=== PATIENT | female | born 1945 | race Caucasian/White ===

== ENCOUNTER → 2021-09-08 09:20 | Outpatient (CLI) | payer BC, SELFPAY ==
[2021-09-08 10:08] LABS: Add Manual Diff / Slide Review NO; Basophils Absolute Auto 0 /uL (0-100); Basophils Percent Auto 0.4 % (0-2); Eosinophils Absolute Auto 200 /uL (0-450); Eosinophils Percent Auto 3.3 % (2-4); Hematocrit 48.6 % (36-46); Hemoglobin 16.4 g/dL (12.0-16.0); Lymphocytes Absolute Auto 1900 /uL (1100-4500); Lymphocytes Percent Auto 30.9 % (25-40); Mean Corpuscular HGB Conc 33.7 % (30-36); Mean Corpuscular Volume 91.9 fL (80-100); Monocytes Absolute Auto 600 /uL (0-900); Monocytes Percent Auto 10.5 % (3-14); Neutrophils Absolute Auto 3400 /uL (1500-7000); Neutrophils Percent Auto 54.9 % (50-75); Platelet Count 234 X10^3/uL (150-400); Red Blood Cell Count 5.29 X10^6/uL (4.0-5.2); Red Cell Distribution Width 13.4 % (11.6-14.8); White Blood Cell Count 6.1 X10^3/uL (4.5-11.0)
[2021-09-08 10:29] LABS: Alanine Aminotransferase 36 IU/L (<35); Albumin 4.6 g/dL (3.5-5.0); Albumin Globulin Ratio 1.4 (1.0-2.8); Alkaline Phosphatase 45 U/L (38-126); Aspartate Aminotransferase 41 IU/L (14-36); Bilirubin Total 0.7 mg/dL (0.2-1.3); Blood Urea Nitrogen 15 mg/dL (7-17); Carbon Dioxide 35 mmol/L (22-32); Chloride 104 mmol/L (98-107); Cholesterol 211 mg/dL (140-199); Estimated Glomerular Filt Rate > 60.0 mL/min (>60); Globulin 3.3 g/dL (1.7-4.1); Glucose 100 mg/dL (80-110); HDL Cholesterol 52 mg/dL (40-60); HEMOLYSIS < 15 (0-50); LDL Cholesterol Calculated 133 mg/dL (<100); Potassium 4.6 mmol/L (3.4-5.1); Sodium 141 mmol/L (137-145); Total Protein 7.9 g/dL (6.3-8.2); Triglycerides 129 mg/dL (35-150)
[2021-09-08 10:58] LABS: TSH w/ Reflex to FT4 1.95 uIU/mL (0.47-4.68)
== END ==
PROVIDERS: PCP Family Medicine; Referring Provider Family Medicine; Visit Provider Family Medicine
DX: Z00.00 Encounter for general adult medical examination without abnormal findings (principal)
CPT/HCPCS: 36415; 80053; 80061; 84443; 85025

== ENCOUNTER → 2023-11-22 | Outpatient (CLI) | payer BC, SELFPAY ==
--- NOTE | 2023-11-22 14:52 | DI.RAD.S_ITS ---
Bone Density Report Name: COTY JACKSON Age: 78 Sex: Female Ethnicity: White Date of : 1945 Indication: postmenopausal; screening for osteoporosis; Referring Provider: ARUNA CHINO Study: Bone densitometry was performed. Exam Date: November 22, 2023 Accession number: [id number] Bone Density: Region BMD T-score Z-score Classification AP Spine(L1-L4) 1.253 1.9 4.4 Normal Femoral Neck (Left) 0.816 -0.3 1.9 Normal Total Hip (Left) 1.002 0.5 2.4 Normal Femoral Neck (Right) 0.753 -0.9 1.3 Normal Total Hip (Right) 0.970 0.2 2.1 Normal Total Hip Mean 0.986 0.4 2.3 Normal World Health Organization criteria for BMD impression classify patients as: Normal (T-score at or above -1.0), Osteopenia (T-score between -1.0 and -2.5), or Osteoporosis (T-score at or below -2.5). 10-year Fracture Risk: FRAX not reported because: All T-scores for Spine Total, Hip Total, Femoral Neck at or above -1.0 Impression: The patient has normal bone mass. Discussion: BONE DENSITY IS ABOVE THE MINIMUM DESIRABLE LEVEL AT ALL SKELETAL SITES TESTED. This patient's bone mineral density is above the minimum desirable level (T-score -1.0 or better) at all sites measured. The patient should follow a healthful lifestyle (good nutrition with adequate calcium and vitamin D, and appropriate weight-bearing exercise). Follow-Up: Consider repeating this study in 5 years or sooner if there is some new clinical indication. Reported by: ROBERTH LEIVA MD on 11/22/2023 3:18:00 PM.
== END ==
PROVIDERS: PCP Family Medicine; Referring Provider Family Medicine; Visit Provider Family Medicine
DX: Z78.0 Asymptomatic menopausal state (principal); Z13.820 Encounter for screening for osteoporosis
CPT/HCPCS: 77080

== ENCOUNTER → 2024-04-02 09:10 | Outpatient (CLI) | payer BC, SELFPAY ==
[2024-04-02 10:42] LABS: Hematocrit 43.9 % (36-46); Hemoglobin 14.8 g/dL (12.0-16.0); Mean Corpuscular HGB Conc 33.6 % (30-36); Mean Corpuscular Hemoglobin 30.2 PG (26-34); Mean Corpuscular Volume 89.9 fL (80-100); Platelet Count 250 X10^3/uL (150-400); Red Blood Cell Count 4.89 X10^6/uL (4.0-5.2); Red Cell Distribution Width 13.1 % (11.6-14.8); White Blood Cell Count 6.1 X10^3/uL (4.5-11.0)
[2024-04-02 10:52] LABS: Hemoglobin A1C% w Est Avg Glu 5.5 % (4.0-6.0)
[2024-04-02 10:55] LABS: Alanine Aminotransferase 22 IU/L (<35); Albumin 4.3 g/dL (3.5-5.0); Albumin Globulin Ratio 1.6 (1.0-2.8); Alkaline Phosphatase 61 U/L (38-126); Aspartate Aminotransferase 32 IU/L (14-36); Bilirubin Total 0.8 mg/dL (0.2-1.3); Blood Urea Nitrogen 21 mg/dL (7-17); Calcium 9.5 mg/dL (8.4-10.2); Carbon Dioxide 22 mmol/L (22-32); Chloride 106 mmol/L (98-107); Cholesterol 186 mg/dL (140-199); Estimated Glomerular Filt Rate > 60 mL/min (>60); Globulin 2.7 g/dL (1.7-4.1); Glucose 95 mg/dL (80-110); HDL Cholesterol 65 mg/dL (40-60); HEMOLYSIS < 15 (0-50); LDL Cholesterol Calculated 106 mg/dL (<100); Potassium 4.5 mmol/L (3.4-5.1); Sodium 137 mmol/L (137-145); Triglycerides 74 mg/dL (35-150); Uric Acid 7.6 mg/dL (2.5-6.2)
[2024-04-02 10:59] LABS: HEMOLYSIS < 15 (0-50); Iron 138 ug/dL (37-170)
[2024-04-02 11:10] LABS: Percent Iron Saturation 42 % (15-50); Total Iron Binding Capacity 326 ug/dL (265-497); Transferrin 241 mg/dL (206-381)
[2024-04-02 11:20] LABS: Vitamin D 25 Hydroxy (D3) 59.2 ng/mL (30.0-100.0)
[2024-04-02 11:22] LABS: Free T3, Triiodothyronine Free 3.36 pg/mL (2.77-5.27); Free T4, Direct Thyroxine 1.15 ng/dL (0.78-2.19)
[2024-04-02 11:30] LABS: Ferritin 147 ng/mL (11-264)
[2024-04-02 11:36] LABS: Thyroid Stimulating Hormone 1.84 uIU/mL (0.47-4.68)
[2024-04-02 11:46] LABS: Vitamin B12 741 pg/mL (239-931)
[2024-04-03 07:36] LABS: Thyroid Peroxidase Antibodies <9 IU/mL (0-34)
[2024-04-03 19:36] LABS: Anti Thyroglobulin Antibody <1.0 IU/mL (0.0-0.9)
[2024-04-04 15:36] LABS: Insulin Level Total 21.4 uIU/mL (2.6-24.9)
== END ==
PROVIDERS: PCP Family Medicine; Referring Provider Family Medicine; Visit Provider Family Medicine
DX: E03.9 Hypothyroidism, unspecified (principal); I10 Essential (primary) hypertension; R01.1 Cardiac murmur, unspecified; E78.5 Hyperlipidemia, unspecified
CPT/HCPCS: 36415; 80053; 80061; 82306; 82607; 82728; 83036; 83525; 83540; 83550; 84439; 84443; 84481; 84550; 85027; 86376; 86800

== ENCOUNTER → 2024-05-02 09:17 | Outpatient (CLI) | payer BC, SELFPAY ==
--- NOTE | 2024-05-02 09:19 | DI.ECHO.S_ITS ---
[place] +---------+ [facility] : : [address] : : [place] : : [id number] : : Phone: [phone] Echocardiogram Report + + :Name: COTY JACKSON Study Date: 05/02/2024 Height: 64 in : :[facility] ReadingLocation: Weight: 139 lb : : Gender: Female BSA: 1.7 m2 : :: 1945 Age: 79 yrs BP: 144/86 mmHg: :Reason For Study: MURMUR : :Ordering Physician: EVAN, : :ARSEN Performed By: Boyd Robles : :Referring: ARSEN GORDON : + + Interpretation Summary 1. The left ventricular contractility is normal. Estimated ejection fraction is greater than 60% with no segmental wall motion abnormalities. No LVH. No diastolic dysfunction. 2. The right ventricular contractility is normal. 3. All cardiac chambers are of normal size. 4. Trace to mild aortic insufficiency. 5. Trace to mild tricuspid regurgitation with estimated pulmonary systolic artery pressures of 33 mmHg. 6. No obvious intracardiac shunts. 7. No obvious intracardiac masses or thrombi. 8. No hemodynamically significant pericardial effusion. 9. Low right-sided filling pressures. Conclusion: Normal biventricular function with mild valvular insufficiencies. Procedure: A two-dimensional transthoracic echocardiogram with color flow and Doppler was performed. The study quality was technically adequate. There is no prior echocardiogram noted for this patient. The patient was in normal sinus rhythm during the exam. The heart rate ranged between 67-76 bpm during the study. Left Ventricle: The left ventricle is normal in size and wall thickness. The ejection fraction is estimated to be 65-70%. Right Ventricle: The right ventricle is normal size. The right ventricular systolic function is normal. Atria: The left atrial size is normal. Right atrial size is normal. The interatrial septum grossly appears intact with no obvious evidence for an atrial septal defect. Mitral Valve: The mitral valve is normal. There is no mitral valve stenosis. There is trace mitral regurgitation. Aortic Valve: The aortic valve is trileaflet. There is no aortic valve stenosis. There is mild aortic regurgitation. Tricuspid Valve: The tricuspid valve is normal. There has been no significant change since the previous study. There is mild tricuspid regurgitation. The right ventricular systolic pressure is estimated to be at least 33.0 mmHg based on an estimated right atrial pressure of 3 mm Hg. Pulmonic Valve: The pulmonic valve is not well visualized. There is no pulmonic valvular stenosis. There is no pulmonic valvular regurgitation. Great Vessels: The aortic root is normal size. The dimensions of the ascending aorta are normal. The IVC is of normal diameter and collapses greater than 50% with a sniff. This suggests a low right atrial pressure of 3 mm Hg. Pericardium/ Pleura There is no pericardial effusion. There is no pleural effusion. MMode/2D Measurements & Calculations LVIDd: 4.1 cm LVOT diam: 1.9 cm LVIDs: 2.5 cm Ao root diam: 2.9 cm FS: 39.1 % asc Aorta Diam: 3.1 cm IVSd: 0.95 cm LVPWd: 0.88 cm LV garrett. diameter/BSA (cm/m^2): 2.4 LV sys. diameter/BSA (cm/m^2): 1.5 LA A2 area: 15.6 cm2 RA long axis: 3.7 cm LA A4 area: 14.7 cm2 RA area: 10.8 cm2 LA length (vol): 4.3 cm RA vol: 27.0 ml LA vol: 45.8 ml RA : 16.1 ml/m2 LA vol index: 27.3 ml/m2 IVC diam: 1.8 cm RVD1 (basal): 3.5 cm RVD2 (mid): 2.7 cm TAPSE: 2.7 cm Doppler Measurements & Calculations Ao V2 max: 151.8 cm/sec LVOT Max Andrei: 104.6 cm/sec Ao V2 mean: 102.2 cm/sec LV V1 max P.4 mmHg Ao max P.2 mmHg LV V1 VTI: 24.4 cm Ao mean P.9 mmHg KATELYNN(I,D): 2.0 cm2 Ao V2 VTI: 35.4 cm KATELYNN(V,D): 2.0 cm2 sev ratio: 0.69 KATELYNN indexed to BSA (cm^2/m^2): 1.2 MV E max andrei: 85.3 cm/sec TR max andrei: 273.9 cm/sec MV A max andrei: 66.1 cm/sec TR max P.0 mmHg MV E/A: 1.3 PA V2 max: 108.8 cm/sec Med Peak E' Andrei: 6.8 cm/sec PA V2 mean: 77.9 cm/sec E/E' med: 12.6 PA mean P.7 mmHg Lat Peak E' Andrei: 10.4 cm/sec PA pr(Accel): 41.3 mmHg E/E' lat: 8.2 E/e' average: 10.4 MV dec time: 0.16 sec SV(LVOT): 71.5 ml Reading Physician:
== END ==
PROVIDERS: PCP Family Medicine; Referring Provider Family Medicine; Visit Provider Family Medicine
DX: I08.2 Rheumatic disorders of both aortic and tricuspid valves (principal); R01.1 Cardiac murmur, unspecified; I10 Essential (primary) hypertension
CPT/HCPCS: 93306

== ENCOUNTER 2024-10-16 15:28 | Inpatient (IN) | payer MEDICARE, BC, SELFPAY ==
[2024-10-16] VITALS (51 sets, daily range): BP systolic 101–203; BP diastolic 56–90; PULSE 71–112; RESP 15–35; TEMP 36.3–36.7; O2SAT 94–98; BMI 26.2
--- NOTE | 2024-10-16 | DI.ECHO.S_ITS ---
[place] +---------+ [facility] : : [address] : : [place] : : [id number] : : Phone: [phone] Echocardiogram Report + + :Name: COTY JACKSON Study Date: 10/17/2024 Height: 64 in : :[facility] ReadingLocation: Weight: 152 lb: : Gender: Female BSA: 1.7 m2 : :: 1945 Age: 79 yrs : :Reason For Study: SYNCOPE : :Ordering Physician: AIDA, : :ARACELI SPRING Performed By: Jyoti Wu : :Referring: ARACELI PARRA MD : + + Interpretation Summary Normal LV size. Top normal LV systolic function. LVEF is 65-70% Mild LVOT flow acceleration at a peak velocity of 2m/s. Normal RV size and function. Normal atrial sizes. No more than mild valvular pathology is noted. Other findings as below. When compared to TTE dated 05/02/24, no clinicailly significant changes are noted. Procedure: A two-dimensional transthoracic echocardiogram with color flow and Doppler was performed. The study quality was technically adequate. Comparison is made with the echocardiogram of 05/02/2024. The patient was in sinus rhythm with heart rates between 76-81 bpm during the exam. Left Ventricle: The left ventricle is normal in size and wall thickness. The ejection fraction is estimated to be 65-70%. Diastolic parameters suggest probable normal left ventricular diastolic function and normal filling pressures. Right Ventricle: The right ventricle is normal in size and function. Atria: The left atrial size is normal. Right atrial size is normal. There is no Doppler evidence for an interatrial shunt. Mitral Valve: The mitral valve leaflets appear to open well. There is mild mitral regurgitation. Aortic Valve: There is mild aortic valve sclerosis. The aortic valve is trileaflet. The aortic valve is mildly calcified. There is no aortic valve stenosis. There is mild aortic regurgitation. Tricuspid Valve: The tricuspid valve leaflets are thin and pliable. There is mild tricuspid regurgitation. The right ventricular systolic pressure is estimated to be at least 38 mmHg based on an estimated right atrial pressure of 3 mm Hg. Pulmonic Valve: The pulmonic valve is not well visualized. There is no pulmonic valvular regurgitation. Great Vessels: The aortic root is normal size. The dimensions of the ascending aorta are normal. The IVC is of normal diameter and collapses greater than 50% with a sniff. This suggests a low right atrial pressure of 3 mm Hg. Pericardium/ Pleura There is no pericardial effusion. There is no pleural effusion. MMode/2D Measurements & Calculations LVIDd: 4.3 cm LVOT diam: 1.9 cm LVIDs: 2.8 cm Ao root diam: 2.5 cm FS: 35.2 % asc Aorta Diam: 3.1 cm IVSd: 0.67 cm Ao Arch Diam (Prox Trans): 2.6 cm LVPWd: 0.77 cm LV garrett. diameter/BSA (cm/m^2): 2.5 LV sys. diameter/BSA (cm/m^2): 1.6 LA A2 area: 15.5 cm2 RA long axis: 4.4 cm LA A4 area: 14.2 cm2 RA area: 14.1 cm2 LA length (vol): 4.3 cm RA vol: 38.3 ml LA vol: 43.1 ml RA : 22.0 ml/m2 LA vol index: 24.7 ml/m2 IVC diam: 1.2 cm RVD1 (basal): 3.7 cm TAPSE: 2.8 cm Doppler Measurements & Calculations Ao V2 max: 184.6 cm/sec LVOT Max Andrei: 143.2 cm/sec Ao V2 mean: 120.2 cm/sec LV V1 max P.2 mmHg Ao max P.6 mmHg LV V1 VTI: 33.0 cm Ao mean P.8 mmHg KATELYNN(I,D): 2.6 cm2 Ao V2 VTI: 36.1 cm KATELYNN(V,D): 2.2 cm2 sev ratio: 0.91 KATELYNN indexed to BSA (cm^2/m^2): 1.5 MV E max andrei: 82.1 cm/sec TR max andrei: 295.2 cm/sec MV A max andrei: 74.7 cm/sec TR max P.9 mmHg MV E/A: 1.1 PA V2 max: 109.7 cm/sec Med Peak E' Andrei: 10.9 cm/sec PA V2 mean: 77.4 cm/sec E/E' med: 7.5 PA mean P.6 mmHg Lat Peak E' Andrei: 11.2 cm/sec PA pr(Accel): 19.1 mmHg E/E' lat: 7.3 E/e' average: 7.4 MV dec time: 0.18 sec SV(OT): 94.0 ml Reading Physician:12:48 PM
--- NOTE | 2024-10-16 15:38 | ED.TRAUMA ---
HPI - Trauma General Chief Complaint: Trauma Stated Complaint: GLF, LOC Time Seen by Provider: 10/16/24 15:31 History of Present Illness HPI narrative: This is a 79-year-old female who arrives by ambulance as a modified trauma activation. Patient had a ground level fall in her driveway struck her head and then rolled down the driveway. Reportedly there was a loss of consciousness. 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 She has been normotensive throughout. Cervical spine was immobilized pre-hospital. The patient is hard of hearing, she has not on blood thinners and reportedly is previously healthy. Related Data Home Medications Medication Instructions Recorded Confirmed clobetasol 0.05 % scalp solution 1 applic topical BID 03/29/24 09/27/24 hydroxychloroquine 200 mg tablet 200 mg PO BID 03/29/24 09/27/24 minoxidil 5 % topical solution 1 ml topical BID frontal fibrosing 03/29/24 09/27/24 alopoecia valsartan 80 mg tablet 80 mg PO DAILY 03/29/24 09/27/24 Previous Rx's Medication Instructions Recorded thyroid (pork) 120 mg tablet 120 mg PO DAILY #90 tabs 09/29/24 ([place] Thyroid) Allergies Allergy/AdvReac Type Severity Reaction Status Date / Time Sulfa (Sulfonamide AdvReac Unknown Verified 09/27/24 14:24 Antibiotics) Patient History Medical History (Updated 10/16/24 @ 19:59 by Hawa Serna MD) Caregiver stress Alopecia Hyperlipidemia Hypothyroidism Benign essential HTN Heart murmur Social History Smoking Status: Never smoker Smoking Status: Never smoker Exam Narrative Exam Narrative: Arrives with a cervical collar immobilized she is alert with repetitive questions. Initial Vital Signs Initial Vital Signs: Vital Signs Pulse Rate 89 10/16/24 15:33 Respiratory Rate 22 10/16/24 15:33 Blood Pressure 203/90 H 10/16/24 15:33 Pulse Oximetry 96 10/16/24 15:33 Oxygen Delivery Method Room Air 10/16/24 15:33 HENMT HENMT Other: Abrasions to the left side of the face dried blood on the left side of the face Eyes Other: Pupils are equal round and reactive extraocular movements are intact Chest Other: Nontender to palpation no crepitance Resp Other: Equal breath sounds GI Other: Abdomen is soft and nontender Back/Spine/Pelvis Other: No tenderness over the thoracic or lumbar spine pelvis is stable to rock and nontender Skin Other: Facial abrasions and skin tears, no suturable laceration Neuro Other: Alert, no motor deficits repetitive questioning Extrem Other: Tenderness of both wrists without deformity capillary refill is instant pulses intact Course Orders Ordered: ED Orders 10/16/24 15:36 Urine Drug Screen, Rapid Stat EKG-12 Lead Stat 10/16/24 15:37 CT cervical spine wo con Stat CT head/brain wo con Stat 10/16/24 15:41 CT facial bones wo con Stat 10/16/24 16:00 XR hand LT min 3V Stat XR hand RT min 3V Stat XR wrist LT min 3V Stat XR wrist RT min 3V Stat 10/16/24 16:19 Complete Blood Count AUTO DIFF Stat Comprehensive Metabolic Panel Stat Ethanol (ETOH) Stat Lipase Stat Prothrombin Time INR Stat 10/16/24 19:49 Chest [XR chest 1V] Stat Sodium Chloride (Normal Saline 0.9%) 1,000 mls @ 100 mls/hr IV CONT CHRIS Last Admin: 10/16/24 20:02 Dose: 100 mls/hr Discontinued Medications Acetaminophen (Acetaminophen 325 Mg Tablet) 650 mg PO NOW ONE Stop: 10/16/24 19:20 Last Admin: 10/16/24 19:24 Dose: 650 mg Documented By: JAM Bacitracin (Bacitracin Oint 0.9 Gm Pckt) 1 applic TOP NOW ONE Stop: 10/16/24 17:22 Last Admin: 10/16/24 17:39 Dose: 1 applic Documented By: SHANDA Diphtheria/Tetanus/Acell Pertussis (Tet,Diph,Pertuss(Acell),Vac/Pf 0.5 Ml Syringe) 0.5 ml IM .ONCE ONE Stop: 10/16/24 15:37 Last Admin: 10/16/24 17:40 Dose: 0.5 ml Documented By: SHANDA Ondansetron HCl (Ondansetron 4 Mg/2 Ml Inj) 4 mg IV NOW ONE Stop: 10/16/24 19:07 Last Admin: 10/16/24 19:13 Dose: 4 mg Documented By: JAM Reevaluation(s) Reevaluation #1: Patient failed test of ambulation with dizziness. Consultations Consultation #1: Discussed with hospitalist, Dr. Serna, request chest x-ray, accepts admission Vital Signs Vital signs: Vital Signs - 8 hr 10/16/24 15:33 10/16/24 15:35 10/16/24 15:56 Pulse Rate 89 91 H Respiratory Rate 22 18 Blood Pressure 203/90 H 179/86 H 179/86 H Pulse Oximetry 96 98 Oxygen Delivery Method Room Air 10/16/24 15:56 10/16/24 16:00 10/16/24 16:00 Pulse Rate 82 82 Respiratory Rate 17 Blood Pressure 172/84 H Pulse Oximetry 97 97 Oxygen Delivery Method 10/16/24 16:05 10/16/24 16:05 10/16/24 16:10 Pulse Rate 77 Respiratory Rate 25 H Blood Pressure 168/86 H 164/85 H Pulse Oximetry 96 Oxygen Delivery Method 10/16/24 16:10 10/16/24 16:22 10/16/24 16:22 Pulse Rate 77 74 Respiratory Rate 25 H 24 Blood Pressure 161/60 H Pulse Oximetry 96 95 Oxygen Delivery Method 10/16/24 16:25 10/16/24 16:25 10/16/24 16:30 Pulse Rate 74 74 Respiratory Rate 19 18 Blood Pressure 163/75 H Pulse Oximetry 96 96 Oxygen Delivery Method 10/16/24 16:30 10/16/24 16:35 10/16/24 16:35 Pulse Rate 73 Respiratory Rate 21 Blood Pressure 162/77 H 162/77 H Pulse Oximetry 96 Oxygen Delivery Method 10/16/24 16:40 10/16/24 16:40 10/16/24 16:45 Pulse Rate 73 72 Respiratory Rate 21 21 Blood Pressure 163/79 H Pulse Oximetry 96 96 Oxygen Delivery Method 10/16/24 16:45 10/16/24 16:50 10/16/24 16:50 Pulse Rate 71 Respiratory Rate 20 Blood Pressure 158/72 H 160/73 H Pulse Oximetry 95 Oxygen Delivery Method 10/16/24 16:55 10/16/24 16:55 10/16/24 17:00 Pulse Rate 71 Respiratory Rate 19 Blood Pressure 159/74 H 166/78 H Pulse Oximetry 96 Oxygen Delivery Method 10/16/24 17:00 10/16/24 17:05 10/16/24 17:05 Pulse Rate 72 72 Respiratory Rate 21 19 Blood Pressure 164/77 H Pulse Oximetry 96 95 Oxygen Delivery Method 10/16/24 17:10 02/05/25 17:10 10/16/24 17:15 Pulse Rate 73 Respiratory Rate 17 Blood Pressure 158/72 H 156/75 H Pulse Oximetry 97 Oxygen Delivery Method 10/16/24 17:15 10/16/24 17:20 10/16/24 17:20 Pulse Rate 75 74 Respiratory Rate 21 16 Blood Pressure 159/82 H Pulse Oximetry 98 Oxygen Delivery Method 10/16/24 17:25 10/16/24 17:25 10/16/24 17:30 Pulse Rate 74 Respiratory Rate 15 Blood Pressure 165/78 H 161/77 H Pulse Oximetry 96 Oxygen Delivery Method 10/16/24 17:30 10/16/24 17:35 10/16/24 17:35 Pulse Rate 78 75 Respiratory Rate 20 22 Blood Pressure 161/76 H Pulse Oximetry 97 97 Oxygen Delivery Method 10/16/24 17:40 10/16/24 17:40 10/16/24 17:45 Pulse Rate 77 75 Respiratory Rate 18 21 Blood Pressure 163/77 H Pulse Oximetry 96 97 Oxygen Delivery Method 10/16/24 17:45 10/16/24 17:50 10/16/24 17:50 Pulse Rate 78 Respiratory Rate 23 Blood Pressure 160/74 H 177/82 H Pulse Oximetry 97 Oxygen Delivery Method 10/16/24 17:55 10/16/24 17:55 10/16/24 18:00 Pulse Rate 76 74 Respiratory Rate 17 18 Blood Pressure 165/73 H Pulse Oximetry 97 97 Oxygen Delivery Method 10/16/24 18:00 10/16/24 18:05 10/16/24 18:05 Pulse Rate 75 Respiratory Rate 20 Blood Pressure 165/75 H 157/74 H Pulse Oximetry 96 Oxygen Delivery Method 10/16/24 18:10 10/16/24 18:10 10/16/24 18:15 Pulse Rate 75 Respiratory Rate 22 Blood Pressure 163/74 H 158/73 H Pulse Oximetry 94 Oxygen Delivery Method 10/16/24 18:15 10/16/24 18:20 10/16/24 18:20 Pulse Rate 75 74 Respiratory Rate 21 21 Blood Pressure 152/71 H Pulse Oximetry 97 95 Oxygen Delivery Method 10/16/24 18:25 10/16/24 18:25 10/16/24 18:30 Pulse Rate 75 75 Respiratory Rate 20 20 Blood Pressure 156/74 H Pulse Oximetry 95 95 Oxygen Delivery Method 10/16/24 18:30 10/16/24 18:35 10/16/24 18:35 Pulse Rate 77 Respiratory Rate 22 Blood Pressure 155/72 H 149/72 H Pulse Oximetry 96 Oxygen Delivery Method 10/16/24 18:40 10/16/24 18:40 10/16/24 18:45 Pulse Rate 76 Respiratory Rate 20 Blood Pressure 150/72 H 149/71 H Pulse Oximetry 96 Oxygen Delivery Method 10/16/24 18:45 10/16/24 18:50 10/16/24 18:50 Pulse Rate 75 76 Respiratory Rate 24 28 H Blood Pressure 154/74 H Pulse Oximetry 95 95 Oxygen Delivery Method 10/16/24 18:55 10/16/24 18:55 10/16/24 19:00 Pulse Rate 77 73 Respiratory Rate 35 H Blood Pressure 147/67 H Pulse Oximetry 95 97 Oxygen Delivery Method 10/16/24 19:01 10/16/24 19:01 10/16/24 19:05 Pulse Rate 77 Respiratory Rate 20 Blood Pressure 101/56 L 129/62 Pulse Oximetry 96 Oxygen Delivery Method 10/16/24 19:05 10/16/24 19:10 10/16/24 19:10 Pulse Rate 74 72 Respiratory Rate 27 H 23 Blood Pressure 159/72 H Pulse Oximetry 96 94 Oxygen Delivery Method 10/16/24 19:11 Pulse Rate 112 H Respiratory Rate 18 Blood Pressure Pulse Oximetry 96 Oxygen Delivery Method MDM - Trauma Lab Data Lab results narrative: CBC with diff is unremarkable INR is normal CMP shows an elevated BUN to creatinine ratio. Ethanol was nondetected 10/16/24 16:19 10/16/24 16:19 Labs: Lab Results 10/16/24 Range/Units 16:19 WBC 8.8 (4.5-11.0) X10^3/uL RBC 4.71 (4.0-5.2) X10^6/uL Hgb 14.5 (12.0-16.0) g/dL Hct 42.8 (36-46) % MCV 90.9 (80-100) fL MCH 30.8 (26-34) PG MCHC 33.9 (30-36) % RDW 13.4 (11.6-14.8) % Plt Count 237 (150-400) X10^3/uL Neut % (Auto) 71.1 (50-75) % Lymph % (Auto) 19.1 L (25-40) % Cache % (Auto) 8.1 (3-14) % Eos % (Auto) 1.1 L (2-4) % Baso % (Auto) 0.6 (0-2) % Neut # (Auto) 6300 (6317-7779) /uL Lymph # (Auto) 1700 (9225-3155) /uL Cache # (Auto) 700 (0-900) /uL Eos # (Auto) 100 (0-450) /uL Baso # (Auto) 100 (0-100) /uL PT 12.1 (9.4-12.5) SECONDS INR 1.1 (0.9-1.3) Sodium 135 L (137-145) mmol/L Potassium 4.2 (3.4-5.1) mmol/L Chloride 102 (98-107) mmol/L Carbon Dioxide 25 (22-32) mmol/L BUN 34 H (7-17) mg/dL Creatinine 0.76 (0.52-1.04) mg/dL Estimated GFR > 60 (>60) mL/min BUN/Creatinine Ratio 44.7 H (6-22) Glucose 132 H (80-110) mg/dL Calcium 9.4 (8.4-10.2) mg/dL Total Bilirubin 0.4 (0.2-1.3) mg/dL AST 43 H (14-36) IU/L ALT 28 (<35) IU/L Alkaline Phosphatase 47 (38-126) U/L Total Protein 7.2 (6.3-8.2) g/dL Albumin 4.2 (3.5-5.0) g/dL Globulin 3.0 (1.7-4.1) g/dL Albumin/Globulin Ratio 1.4 (1.0-2.8) Lipase 107 (23-300) U/L Ethyl Alcohol < 10 ( - 10) mg/dL Point of Care Testing Glucose POC [address] scan - head: My Impression: No acute injury seen on my independent review Radiologist's Impression: [address] [address] [address] Scan Report Signed Patient: Анна Metcalf MR#: [id number] : 1945 Acct:[id number] Age/Sex: 79 / F Date of Service: 10/16/24 Loc: ED Accession Number: [id number] Procedure: CT head/brain wo con Ordering Provider: Indra Butler MD PROCEDURE: CT HEAD/BRAIN WO CON INDICATIONS: Trauma TECHNIQUE: Noncontrast 4.5 mm thick angled axial sections acquired from the foramen magnum to the vertex, with coronal and sagittal reformats. For radiation dose reduction, the following was used: automated exposure control, adjustment of mA and/or kV according to patient size. COMPARISON: None. FINDINGS: Image quality: Diagnostic CSF spaces: Basal cisterns are patent. Lateral ventricles are symmetric. Volume: Vascular calcifications. Periventricular white matter disease is commonly seen with chronic microangiopathy. Volume loss is present. These findings are mild Brain: No intracranial hemorrhage. Hernandez-white differentiation is grossly maintained. Craniofacial structures: Left periorbital soft tissue contusion. Facial findings are separately dictated IMPRESSION: No acute intracranial hemorrhage. Facial findings are separately dictated. Dictated by: Yoshi Hunt M.D. on 10/16/2024 at 16:03 CT of facial bone: Radiologist's Impression: [place] [address] CT Scan Report Signed Patient: Анна Metcalf MR#: [id number] : 1945 Acct:[id number] Age/Sex: 79 / F Date of Service: 10/16/24 Loc: ED Accession Number: [id number] Procedure: CT facial bones wo con Ordering Provider: Indra Butler MD PROCEDURE: CT FACIAL BONES WO CON INDICATIONS: trauma TECHNIQUE: Noncontrast 2.5 mm thick axial images acquired from the mandible through the frontal sinuses, with coronal and sagittal reformatting. For radiation dose reduction, the following was used: automated exposure control, adjustment of mA and/or kV according to patient size. COMPARISON: None. FINDINGS: Image quality: Mildly motion degraded Bones: No definite acute nasal bone fracture. The zygomatic arches appear intact. The pterygoid plates appear intact. The orbital beckford appear intact. No displaced fracture of the mandible. TMJ arthrosis is present. Sinuses and mastoids: No significant paranasal sinus or mastoid fluid Soft tissues: Left periorbital and facial soft tissue contusions and mild subcutaneous gas. No drainable fluid collections identified. The globes appear intact. Brain: Separately dictated Cervical spine findings separately dictated IMPRESSION: Left facial soft tissue contusions and periorbital swelling. The globes appear intact by CT. No displaced acute fracture is identified. Dictated by: Yoshi Hunt M.D. on 10/16/2024 at 16:05 Approved by: Yoshi Hunt M.D. on 10/16/2024 at 16:07 CT - cervical spine: My Impression: Independent reviewed CT C-spine no acute fracture Radiologist's Impression: [address] [address] [address] Scan Report Signed Patient: Анна Metcalf MR#: [id number] : 1945 Acct:[id number] Age/Sex: 79 / F Date of Service: 10/16/24 Loc: ED Accession Number: [id number] Procedure: CT cervical spine wo con Ordering Provider: Indra Butler MD PROCEDURE: CT CERVICAL SPINE WO CON INDICATIONS: Trauma TECHNIQUE: Noncontrast 3 mm thick sections acquired from the skull base to the T4 level. Sagittal and coronal reformats were then constructed. For radiation dose reduction, the following was used: automated exposure control, adjustment of mA and/or kV according to patient size. COMPARISON: None. FINDINGS: Image quality: Diagnostic Bones: Vertebral body heights are well maintained. There are moderate spondylotic changes throughout the cervical spine with arthropathy, disc space height loss, and osteophytes. No traumatic subluxation. Soft tissues: No apical pneumothorax. Prevertebral soft tissues within normal limits. There are vascular calcifications. IMPRESSION: No displaced fracture or traumatic subluxation. Fjva-vs-[id number] spondylotic changes. If there is high concern for further derangement, consider MRI evaluation. Dictated by: Yoshi Hunt M.D. on 10/16/2024 at 16:07 [facility] Narrative Medical decision making narrative: Additional imaging: Bilateral plain films of the hands and wrists without acute fracture.; 79-year-old female with a ground level fall and head injury. She is neurologically intact without intracranial hemorrhage or cervical spine fracture. Have facial injuries without suturable lacerations and no facial fractures on CT. Did not have tenderness of her chest thoracic or lumbar spine or pelvis. Hemodynamically stable with reassuring labs the patient appears to be concussed and at this point is unable to ambulate. She will be admitted to the hospitalist service Discharge Plan Departure Patient Disposition: Admitted As Inpatient Clinical Impression: Ground-level fall Concussion Qualifiers: Encounter type: initial encounter Loss of consciousness presence/duration: with LOC of 30 min or less Qualified Code(s): S06.0X1A - Concussion with loss of consciousness of 30 minutes or less, initial encounter Facial contusion Qualifiers: Encounter type: initial encounter Qualified Code(s): S00.83XA - Contusion of other part of head, initial encounter Admit Date/Time: 10/16/24 19:54 Admit Provider: Hawa Serna
--- NOTE | 2024-10-16 15:41 | DI.CT.S_ITS ---
PROCEDURE: CT FACIAL BONES WO CON INDICATIONS: trauma TECHNIQUE: Noncontrast 2.5 mm thick axial images acquired from the mandible through the frontal sinuses, with coronal and sagittal reformatting. For radiation dose reduction, the following was used: automated exposure control, adjustment of mA and/or kV according to patient size. COMPARISON: None. FINDINGS: Image quality: Mildly motion degraded Bones: No definite acute nasal bone fracture. The zygomatic arches appear intact. The pterygoid plates appear intact. The orbital beckford appear intact. No displaced fracture of the mandible. TMJ arthrosis is present. Sinuses and mastoids: No significant paranasal sinus or mastoid fluid Soft tissues: Left periorbital and facial soft tissue contusions and mild subcutaneous gas. No drainable fluid collections identified. The globes appear intact. Brain: Separately dictated Cervical spine findings separately dictated IMPRESSION: Left facial soft tissue contusions and periorbital swelling. The globes appear intact by CT. No displaced acute fracture is identified. Dictated by: Yoshi Hunt M.D. on 10/16/2024 at 16:05 Approved by: Yoshi Hunt M.D. on 10/16/2024 at 16:07
--- NOTE | 2024-10-16 15:54 | EKG_ITS ---
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
--- NOTE | 2024-10-16 16:00 | DI.RAD.S_ITS ---
PROCEDURE: XR WRIST RT MIN 3V INDICATIONS: r/o fx TECHNIQUE: 4 views of the wrist were acquired. COMPARISON: None. FINDINGS: Diffuse osseous demineralization. No acute fracture or dislocation. The scapholunate interval is preserved. Negative ulnar variance posture. 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 IMPRESSION: No acute fracture or dislocation of the right wrist. Dictated by: Jose Garner M.D. on 10/16/2024 at 16:33 Approved by: Jose Garner M.D. on 10/16/2024 at 16:34
--- NOTE | 2024-10-16 16:00 | DI.RAD.S_ITS ---
PROCEDURE: XR WRIST LT MIN 3V INDICATIONS: r/o fx TECHNIQUE: 4 views of the wrist were acquired. COMPARISON: [facility], CR, XR HAND LT MIN 3V, 10/16/2024, 16:00. FINDINGS: Bones: Ulna styloid is not clearly identified. Cystic changes present at the distal ulna. No suspicious bony lesions. Soft tissues: No suspicious soft tissue calcifications. IMPRESSION: Ulna styloid is not clearly identified. This may be partially obscured secondary to cystic change or prior trauma. No visualized acute fracture or dislocation. However, if clinical concern and/or pain persist, short interval imaging followup in 7-10 days is recommended, as occult injury cannot be definitively excluded. Dictated by: Anneliese De Leon M.D. on 10/16/2024 at 16:37 Approved by: Anneliese De Leon M.D. on 10/16/2024 at 16:38
--- NOTE | 2024-10-16 16:00 | DI.RAD.S_ITS ---
PROCEDURE: XR HAND RT MIN 3V INDICATIONS: r/o fx TECHNIQUE: 3 views of the hand(s) acquired. COMPARISON: None. FINDINGS: Diffuse osseous demineralization. No acute fracture or dislocation. Mild 1st CMC and triscaphe osteoarthritis. Scattered PIP/DIP joint osteoarthritis. Mild radiocarpal osteoarthritis. 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 Dictated by: Jose Garner M.D. on 10/16/2024 at 16:32 Approved by: Jose Garner M.D. on 10/16/2024 at 16:33
--- NOTE | 2024-10-16 16:00 | DI.RAD.S_ITS ---
PROCEDURE: XR HAND LT MIN 3V INDICATIONS: r/o fx TECHNIQUE: 3 views of the hand(s) acquired. COMPARISON: None. FINDINGS: Diffuse osseous demineralization. No acute fracture or dislocation. Moderate 1st CMC, triscaphe, and mild scattered PIP/DIP joint osteoarthritis. Mild radiocarpal and distal radioulnar joint osteoarthritis. IMPRESSION: No acute fracture or dislocation of the left hand. Dictated by: Jose Garner M.D. on 10/16/2024 at 16:30 Approved by: Jose Garner M.D. on 10/16/2024 at 16:32
[2024-10-16 16:31] LABS: Add Manual Diff / Slide Review NO; Basophils Absolute Auto 100 /uL (0-100); Basophils Percent Auto 0.6 % (0-2); Eosinophils Absolute Auto 100 /uL (0-450); Eosinophils Percent Auto 1.1 % (2-4); Hematocrit 42.8 % (36-46); Hemoglobin 14.5 g/dL (12.0-16.0); Lymphocytes Absolute Auto 1700 /uL (1100-4500); Lymphocytes Percent Auto 19.1 % (25-40); Mean Corpuscular HGB Conc 33.9 % (30-36); Mean Corpuscular Hemoglobin 30.8 PG (26-34); Mean Corpuscular Volume 90.9 fL (80-100); Monocytes Absolute Auto 700 /uL (0-900); Monocytes Percent Auto 8.1 % (3-14); Neutrophils Absolute Auto 6300 /uL (1500-7000); Neutrophils Percent Auto 71.1 % (50-75); Platelet Count 237 X10^3/uL (150-400); Red Blood Cell Count 4.71 X10^6/uL (4.0-5.2); Red Cell Distribution Width 13.4 % (11.6-14.8); White Blood Cell Count 8.8 X10^3/uL (4.5-11.0)
[2024-10-16 16:39] LABS: INR 1.1 (0.9-1.3); Prothrombin Time 12.1 SECONDS (9.4-12.5)
[2024-10-16 16:44] LABS: Alanine Aminotransferase 28 IU/L (<35); Albumin 4.2 g/dL (3.5-5.0); Albumin Globulin Ratio 1.4 (1.0-2.8); Alkaline Phosphatase 47 U/L (38-126); Aspartate Aminotransferase 43 IU/L (14-36); BUN Creatinine Ratio 44.7 (6-22); Bilirubin Total 0.4 mg/dL (0.2-1.3); Blood Urea Nitrogen 34 mg/dL (7-17); Calcium 9.4 mg/dL (8.4-10.2); Carbon Dioxide 25 mmol/L (22-32); Chloride 102 mmol/L (98-107); Estimated Glomerular Filt Rate > 60 mL/min (>60); Ethanol (ETOH) < 10 mg/dL; Glucose 132 mg/dL (80-110); HEMOLYSIS 47 (0-50); Lipase 107 U/L (23-300); Potassium 4.2 mmol/L (3.4-5.1); Sodium 135 mmol/L (137-145); Total Protein 7.2 g/dL (6.3-8.2)
[2024-10-16] MEDS: BACITRACIN OINT 0.9 GM PCKT 1 APPLIC TOP (17:39)
[2024-10-16] MEDS: TET,DIPH,PERTUSS(ACELL),VAC/PF 0.5 ML SYRINGE IM (17:40)
--- NOTE | 2024-10-16 18:18 | PC.NURSE ---
1602 c-spine negative. Ok to remove c-collar @ [id number] Butler ED
--- NOTE | 2024-10-16 19:04 | PC.NURSE ---
Pt failed road test. Physician aware. She is lightheaded, dizzy and nausea.
[2024-10-16] MEDS: ONDANSETRON 4 MG/2 ML INJ IV (19:13)
[2024-10-16] MEDS: ACETAMINOPHEN 325 MG TABLET 650 MG PO (19:24)
--- NOTE | 2024-10-16 19:49 | DI.RAD.S_ITS ---
PROCEDURE: XR CHEST 1V INDICATIONS: truma TECHNIQUE: One view of the chest was acquired. COMPARISON: None. FINDINGS: Surgical changes and devices: Bilateral breast implants are seen with peripheral calcifications. Lungs and pleura: Lungs are clear. No pleural effusions or pneumothorax. Mediastinum: Mediastinal contours appear normal. Heart size is normal. Bones and chest wall: No suspicious bony lesions. Overlying soft tissues appear unremarkable. IMPRESSION: No acute cardiopulmonary pathology. Dictated by: Barry Hernandez M.D. on 10/16/2024 at 20:37 Approved by: Barry Hernandez M.D. on 10/16/2024 at 20:37
--- NOTE | 2024-10-16 19:56 | PM.HP.1 ---
History of Present Illness History of Present Illness Date Patient Seen: 10/16/24 Date of Onset of Symptoms: 10/16/24 Chief complaint: GLF, LOC Narrative: Анна Metcalf is a 79 y/o Female with h/o HTN, benign cardiac murmur, Alopecia, Hypothyroidism, DJD, OA, and is hard of hearing , who was in her drive way, taking her tyrash out, when she slipped on the icy surface , falling to the ground hitting her head. Pt states she recalls taking the garbage out, and falling but has no recollection of rest of the events, her neighbor finding her on the ground, not responding and an ambulance called for her. Next thing pt recalls is when she was in the ED. She had noted Left wrist pain after her fall. Denies headache, Vision loss or double vision. no speech deficit. No weakness of any extremity. Pt denies CP, SOB, cough, f/c, abd pain Denies h/o VA, Stroke, DM. Does not take blood thinners. She denies prior h/o falls or syncopal episodes. In ED , her SBP was initially elevated, rest of vitals were stable, O2 sats adequate on RA EKG: reviewed by me : NSR HR 84 , no acute ST- T wave changes noted CT head : no acute changes CT spine : no acute changes, no fractures Facial bones XR : no fracture of facial bones Blat wrist XR: no fracture Labs unremarkable except mild elevated BUN Pt was given Acetaminophen po in ED and was started on IV NS, pt was noted upon standing up, to be nauseated and feeling light headed. So was admitted for observation and to continue IVF [facility] Medical History (Updated 10/17/24 @ 00:17 by Hawa Serna MD) Hypertension not at goal Caregiver stress Alopecia Hyperlipidemia Hypothyroidism Benign essential HTN Heart murmur Social History household members: spouse Smoking Status: Never smoker Meds Home Medications and Allergies Home Medications Medication Instructions Recorded Confirmed Type clobetasol 0.05 % scalp solution 1 applic topical BID 03/29/24 10/16/24 History hydroxychloroquine 200 mg tablet 200 mg PO BID 03/29/24 10/16/24 History minoxidil 5 % topical solution 1 ml topical BID frontal fibrosing 03/29/24 10/16/24 History alopoecia valsartan 80 mg tablet 80 mg PO DAILY 03/29/24 10/16/24 History thyroid (pork) 120 mg tablet 120 mg PO DAILY #90 tabs 09/29/24 10/16/24 Rx ([facility]) Allergies Allergy/AdvReac Type Severity Reaction Status Date / Time Sulfa (Sulfonamide AdvReac Unknown Verified 09/27/24 14:24 Antibiotics) Review of Systems Review of Systems ROS: Yes All systems reviewed with the patient and are negative except as otherwise documented Constitutional Constitutional: Reports system reviewed and no additional complaints, except as documented Eyes Eyes: Reports system reviewed and no additional complaints, except as documented ENT Ears, Nose, Mouth, and Throat: Yes as per HPI Cardiovascular Cardiovascular: Reports as per HPI Respiratory Respiratory: Reports as per HPI Gastrointestinal Gastrointestinal: Reports as per HPI Genitourinary Genitourinary: Reports as per HPI Musculoskeletal Musculoskeletal: Reports as per HPI Integumentary/Breasts Skin/Breast: Reports as per HPI Neurologic Neurologic: Reports as per HPI Psychiatric Psychiatric: Reports as per HPI Hematologic/Lymphatic Hematologic/Lymphatic: Reports as per HPI Allergic/Immunologic Allergic/Immunologic: Reports as per HPI Exam Vital Signs (past 8 hours): - 10/16/24 15:33 10/16/24 15:35 10/16/24 15:56 Pulse Rate 89 91 H Respiratory Rate 22 18 Blood Pressure 203/90 H 179/86 H 179/86 H Pulse Oximetry 96 98 Oxygen Delivery Method Room Air 10/16/24 15:56 10/16/24 16:00 10/16/24 16:00 Pulse Rate 82 82 Respiratory Rate 17 Blood Pressure 172/84 H Pulse Oximetry 97 97 Oxygen Delivery Method 10/16/24 16:05 10/16/24 16:05 10/16/24 16:10 Pulse Rate 77 Respiratory Rate 25 H Blood Pressure 168/86 H 164/85 H Pulse Oximetry 96 Oxygen Delivery Method 10/16/24 16:10 10/16/24 16:22 10/16/24 16:22 Pulse Rate 77 74 Respiratory Rate 25 H 24 Blood Pressure 161/60 H Pulse Oximetry 96 95 Oxygen Delivery Method 10/16/24 16:25 10/16/24 16:25 10/16/24 16:30 Pulse Rate 74 74 Respiratory Rate 19 18 Blood Pressure 163/75 H Pulse Oximetry 96 96 Oxygen Delivery Method 10/16/24 16:30 10/16/24 16:35 10/16/24 16:35 Pulse Rate 73 Respiratory Rate 21 Blood Pressure 162/77 H 162/77 H Pulse Oximetry 96 Oxygen Delivery Method 10/16/24 16:40 10/16/24 16:40 10/16/24 16:45 Pulse Rate 73 72 Respiratory Rate 21 21 Blood Pressure 163/79 H Pulse Oximetry 96 96 Oxygen Delivery Method 10/16/24 16:45 10/16/24 16:50 10/16/24 16:50 Pulse Rate 71 Respiratory Rate 20 Blood Pressure 158/72 H 160/73 H Pulse Oximetry 95 Oxygen Delivery Method 10/16/24 16:55 10/16/24 16:55 10/16/24 17:00 Pulse Rate 71 Respiratory Rate 19 Blood Pressure 159/74 H 166/78 H Pulse Oximetry 96 Oxygen Delivery Method 10/16/24 17:00 10/16/24 17:05 10/16/24 17:05 Pulse Rate 72 72 Respiratory Rate 21 19 Blood Pressure 164/77 H Pulse Oximetry 96 95 Oxygen Delivery Method 10/16/24 17:10 10/16/24 17:10 10/16/24 17:15 Pulse Rate 73 Respiratory Rate 17 Blood Pressure 158/72 H 156/75 H Pulse Oximetry 97 Oxygen Delivery Method 10/16/24 17:15 10/16/24 17:20 10/16/24 17:20 Pulse Rate 75 74 Respiratory Rate 21 16 Blood Pressure 159/82 H Pulse Oximetry 98 Oxygen Delivery Method 10/16/24 17:25 10/16/24 17:25 10/16/24 17:30 Pulse Rate 74 Respiratory Rate 15 Blood Pressure 165/78 H 161/77 H Pulse Oximetry 96 Oxygen Delivery Method 10/16/24 17:30 10/16/24 17:35 10/16/24 17:35 Pulse Rate 78 75 Respiratory Rate 20 22 Blood Pressure 161/76 H Pulse Oximetry 97 97 Oxygen Delivery Method 10/16/24 17:40 10/16/24 17:40 10/16/24 17:45 Pulse Rate 77 75 Respiratory Rate 18 21 Blood Pressure 163/77 H Pulse Oximetry 96 97 Oxygen Delivery Method 10/16/24 17:45 10/16/24 17:50 10/16/24 17:50 Pulse Rate 78 Respiratory Rate 23 Blood Pressure 160/74 H 177/82 H Pulse Oximetry 97 Oxygen Delivery Method 10/16/24 17:55 10/16/24 17:55 10/16/24 18:00 Pulse Rate 76 74 Respiratory Rate 17 18 Blood Pressure 165/73 H Pulse Oximetry 97 97 Oxygen Delivery Method 10/16/24 18:00 10/16/24 18:05 10/16/24 18:05 Pulse Rate 75 Respiratory Rate 20 Blood Pressure 165/75 H 157/74 H Pulse Oximetry 96 Oxygen Delivery Method 10/16/24 18:10 10/16/24 18:10 10/16/24 18:15 Pulse Rate 75 Respiratory Rate 22 Blood Pressure 163/74 H 158/73 H Pulse Oximetry 94 Oxygen Delivery Method 10/16/24 18:15 10/16/24 18:20 10/16/24 18:20 Pulse Rate 75 74 Respiratory Rate 21 21 Blood Pressure 152/71 H Pulse Oximetry 97 95 Oxygen Delivery Method 10/16/24 18:25 10/16/24 18:25 10/16/24 18:30 Pulse Rate 75 75 Respiratory Rate 20 20 Blood Pressure 156/74 H Pulse Oximetry 95 95 Oxygen Delivery Method 10/16/24 18:30 10/16/24 18:35 10/16/24 18:35 Pulse Rate 77 Respiratory Rate 22 Blood Pressure 155/72 H 149/72 H Pulse Oximetry 96 Oxygen Delivery Method 10/16/24 18:40 10/16/24 18:40 10/16/24 18:45 Pulse Rate 76 Respiratory Rate 20 Blood Pressure 150/72 H 149/71 H Pulse Oximetry 96 Oxygen Delivery Method 10/16/24 18:45 10/16/24 18:50 10/16/24 18:50 Pulse Rate 75 76 Respiratory Rate 24 28 H Blood Pressure 154/74 H Pulse Oximetry 95 95 Oxygen Delivery Method 10/16/24 18:55 10/16/24 18:55 10/16/24 19:00 Pulse Rate 77 73 Respiratory Rate 35 H Blood Pressure 147/67 H Pulse Oximetry 95 97 Oxygen Delivery Method 10/16/24 19:01 10/16/24 19:01 10/16/24 19:05 Pulse Rate 77 Respiratory Rate 20 Blood Pressure 101/56 L 129/62 Pulse Oximetry 96 Oxygen Delivery Method 10/16/24 19:05 10/16/24 19:10 10/16/24 19:10 Pulse Rate 74 72 Respiratory Rate 27 H 23 Blood Pressure 159/72 H Pulse Oximetry 96 94 Oxygen Delivery Method 10/16/24 19:11 Pulse Rate 112 H Respiratory Rate 18 Blood Pressure Pulse Oximetry 96 Oxygen Delivery Method Oxygen Delivery Method Room Air Narrative Exam Narrative: Constitutional General: cooperative, comfortable and well developed Orientation: alert and oriented x3 [facility] Head: normal to inspection, normocephalic and atraumatic Face and sinus: normal facial exam Mouth: oral mucosae normal and moist mucous membranes Throat: posterior oropharynx normal Eyes General: appearance normal, both eyes and all related structures Pupils: PERRL EOM: EOM intact bilaterally Neck Neck: normal visual inspection and full ROM Chest Chest: normal inspection of the chest Resp Effort & Inspection: normal respiratory effort and able to speak in complete sentences Auscultation: clear to auscultation bilaterally Cardio Palpation: normal PMI Rate: regular rate Rhythm: regular rhythm Heart Sounds: S1 normal and S2 normal, 2/6 ROBBI GI Inspection: normal to inspection Palpation: soft and no hepato splenomegaly Auscultation: normal bowel sounds Skin: warm, non cyanotic General: no rashes or lesions noted except Left lisa orbital bruising and mild swelling , mild tenderness to palpation/ no skin breaks Rashes: no rashes Trauma: no lacerations or abrasions Neuro General: patient alert, patient awake, patient oriented x3 and no focal motor deficits Hard of hearing Cranial Nerves: CN's II-XI intact bilaterally Cognition: normal cognition Speech: speech normal Gait: normal gait Motor: muscle tone normal throughout Sensory Exam: no sensory deficits noted Extremities: General: full ROM and no calf tenderness Mild tender Left wrist with decreased ROM on Left wrist Flexion Patient wearing a Left wrist soft brace Psych Appearance: grossly normal Mental Status: mental status grossly normal Speech and Movement: speech and movement normal No ankle edema bilat, no calf tenderness bilaterally pp : 2 + bilat symmetric Objective Labs 10/16/24 16:19 10/16/24 16:19 Labs: Laboratory Results - last 24 hr 10/16/24 16:19 WBC 8.8 RBC 4.71 Hgb 14.5 Hct 42.8 MCV 90.9 MCH 30.8 MCHC 33.9 RDW 13.4 Plt Count 237 Neut % (Auto) 71.1 Lymph % (Auto) 19.1 L [place] % (Auto) 8.1 Eos % (Auto) 1.1 L Baso % (Auto) 0.6 Neut # (Auto) 6300 Lymph # (Auto) 1700 [place] # (Auto) 700 Eos # (Auto) 100 Baso # (Auto) 100 PT 12.1 INR 1.1 Sodium 135 L Potassium 4.2 Chloride 102 Carbon Dioxide 25 BUN 34 H Creatinine 0.76 Estimated GFR > 60 BUN/Creatinine Ratio 44.7 H Glucose 132 H Calcium 9.4 Total Bilirubin 0.4 AST 43 H ALT 28 Alkaline Phosphatase 47 Total Protein 7.2 Albumin 4.2 Globulin 3.0 Albumin/Globulin Ratio 1.4 Lipase 107 Ethyl Alcohol < 10 Assessment & Plan Assessment and plan (1) Ground-level fall: Problem details: Secondary to slipping on icy driveway Status: Acute Plan: Pt has had several imaging studies done in ED, including bilateral wrist Xrays, CT spine, reviewed, with no fractures, and no acute changes on Head CT Pt admitted for Observation sec to Dehydration/ as she felt nauseated and light headed when stood up , and IVF ordered PT/ OT eval in the morning Fall Precautions (2) Concussion: Problem details: Sec to GLF , hitting head against concrete, likely has concussion, no acute changes on CT head or CT spine / No ICH . Pt experiencing amnesia of events following her fall. No other neurologic deficits. Qualifiers: Encounter type: initial encounter Loss of consciousness presence/duration: with LOC of 30 min or less Qualified Code(s): S06.0X1A - Concussion with loss of consciousness of 30 minutes or less, initial encounter Status: Acute Plan: Monitor closely for any worsening of her amnesia which is most likely sec to a concussion sec to her GLF/ hitting her head PT/ OT eval in the morning (3) Episode of syncope: Problem details: Most likely sec to hitting her head/ concussion No acute findings on CT head. EKG : no acute changes, no arrythmias as noted in HPI Shall continue Cardiac monitoring. Echo and carotid dopplers ordered for the morning. Pt has had an echo done 05/02/24 ( LVEF : 60 / mild Valvular abn / Otherwise WNL) for cardiac murmur evaluation. Electrolytes WNL/ CBC/UA WNL Qualifiers: Syncope type: unspecified Qualified Code(s): R55 - Syncope and collapse Status: Acute (4) Light-headed: Problem details: Likely sec to dehydration , as mild elevated BUN / mild associated Nausea/ no abd pain Status: Acute Plan: IVF NS 100 mls per hour Continue to monitor closely Monitor Renal Function/ BMP in am (5) Hypertension not at goal: Problem details: Pt with h/o HTN, her SBP was elevated initial 203 mm Hg , and repeat in 170s, in ED, was given pain relief with better control of SBP Status: Acute Plan: Continue Home Valsartan Continue Cardiac monitoring and checking VS prn Time-Based Coding :: [TOTAL MINUTES] spent with patient and on the chart (including review of chart, obtaining history, exam, reviewing outside data, placing orders, documenting exam and treatment plan, and counseling patient) on [DATE].
[2024-10-16] MEDS: SODIUM CHLORIDE 0.9% 1,000 ML 100 ML IV (20:02)
[2024-10-16 22:18] LABS: Ur Creatinine Normal (Normal); Ur Specific Gravity Normal (Normal); Urine Amphetamines Negative (Negative); Urine Barbiturates Negative (Negative); Urine Benzodiazepines Negative (Negative); Urine Cocaine Negative (Negative); Urine MDMA Negative (Negative); Urine Methadone Negative (Negative); Urine Methamphetamines Negative (Negative); Urine Opiates Negative (Negative); Urine Oxycodone Negative (Negative); Urine Phencyclidine Negative (Negative); Urine THC Negative (Negative); Urine Tricyclic Antidepressant Negative (Negative); Urine pH Normal (Normal)
[2024-10-16 23:01] LABS: Ammonia (NH3) < 9 umol/L (9-30)
[2024-10-16 23:21] LABS: Appearance Urine UA CLEAR; Bilirubin Urine UA NEGATIVE (NEGATIVE); Color Urine UA YELLOW; Glucose Urine UA NEGATIVE (Negative); Ketones Urine UA NEGATIVE (NEGATIVE); Leukocyte Esterase Urine UA NEGATIVE (NEGATIVE); Nitrite Urine UA NEGATIVE (Negative); Occult Blood Urine UA NEGATIVE (Negative); Protein Urine UA NEGATIVE (Negative); Urobilinogen Urine UA 0.2 E.U./dL (0.2)
--- NOTE | 2024-10-16 23:25 | DI.US.S_ITS ---
PROCEDURE: US CAROTID DOPPLER BI INDICATIONS: SYNCOPAL EPISODE TECHNIQUE: Color and pulse Doppler interrogation was performed of both carotid systems, with image documentation and velocity measurements. COMPARISON: None. FINDINGS: Stenosis calculations are based on SRU (Society of Radiologists in Ultrasound) criteria. Right side: Brachial blood pressure: 135/73 mm Hg. Common carotid artery peak systolic velocity: 75 cm/sec. Internal carotid artery peak systolic velocity: 170 cm/sec. Internal carotid artery end diastolic velocity: 34 cm/sec. External carotid artery peak systolic velocity: 133 cm/sec. ICA/CCA peak systolic ratio: 2.25 . Hernandez scale imaging description: Calcified and noncalcified plaque Percent internal carotid artery stenosis: 50-69 percent stenosis. Vertebral artery: Flow direction is antegrade. Left side: Brachial blood pressure: Not obtained Common carotid artery peak systolic velocity: 101 cm/sec. Internal carotid artery peak systolic velocity: 100 cm/sec. Internal carotid artery end diastolic velocity: 25 cm/sec. External carotid artery peak systolic velocity: 132 cm/sec. ICA/CCA peak systolic ratio: 0.99 . Hernandez scale imaging description: Calcified and noncalcified plaque Percent internal carotid artery stenosis: Less than 50 percent stenosis. Vertebral artery: Flow direction is antegrade. IMPRESSION: 1. In the right carotid artery, there is 50-69 percent stenosis based on peak systolic velocity criteria. 2. In the left carotid artery, there is less than 50 percent stenosis based on peak systolic velocity criteria. 3. Antegrade vertebral arteries. Approved by: Peyton Mane M.D.,Ph.D. on 10/17/2024 at 12:36
[2024-10-16 23:32] LABS: Bacteria Urine Occasional (0-1); Calcium Oxalate Crystals Urine Few; Hyaline Casts Urine 0-1/LPF; RBC Urine 0-1/HPF (0-5/HPF); Squamous Epithelial Cell Urine 0-1 /HPF (0-5/HPF); Urine Volume 10mL (spun); WBC Urine 0-1/HPF (0-5/HPF)
[2024-10-16 23:33] LABS: Culture Indicated Urine Cult Not Indicated
[2024-10-16 23:51] LABS: Thyroid Stimulating Hormone 3.55 uIU/mL (0.47-4.68)
--- NOTE | 2024-10-17 00:35 | PC.ADMIT ---
[email or web address] [facility] Admission Note: The patient,Анна Metcalf,79 y/o, was given written information regarding hospital policies, unit procedures and contact persons. Patient's smoking status: Never smoker. Vital Signs - 8 hr 10/16/24 16:40 10/16/24 16:40 10/16/24 16:45 Temperature Pulse Rate 73 72 Respiratory Rate 21 21 Blood Pressure 163/79 H Pulse Oximetry 96 96 Oxygen Delivery Method Oxygen Flow Rate 10/16/24 16:45 10/16/24 16:50 10/16/24 16:50 Temperature Pulse Rate 71 Respiratory Rate 20 Blood Pressure 158/72 H 160/73 H Pulse Oximetry 95 Oxygen Delivery Method Oxygen Flow Rate 10/16/24 16:55 10/16/24 16:55 10/16/24 17:00 Temperature Pulse Rate 71 Respiratory Rate 19 Blood Pressure 159/74 H 166/78 H Pulse Oximetry 96 Oxygen Delivery Method Oxygen Flow Rate 10/16/24 17:00 10/16/24 17:05 10/16/24 17:05 Temperature Pulse Rate 72 72 Respiratory Rate 21 19 Blood Pressure 164/77 H Pulse Oximetry 96 95 Oxygen Delivery Method Oxygen Flow Rate 10/16/24 17:10 10/16/24 17:10 10/16/24 17:15 Temperature Pulse Rate 73 Respiratory Rate 17 Blood Pressure 158/72 H 156/75 H Pulse Oximetry 97 Oxygen Delivery Method Oxygen Flow Rate 10/16/24 17:15 10/16/24 17:20 10/16/24 17:20 Temperature Pulse Rate 75 74 Respiratory Rate 21 16 Blood Pressure 159/82 H Pulse Oximetry 98 Oxygen Delivery Method Oxygen Flow Rate 10/16/24 17:25 10/16/24 17:25 10/16/24 17:30 Temperature Pulse Rate 74 Respiratory Rate 15 Blood Pressure 165/78 H 161/77 H Pulse Oximetry 96 Oxygen Delivery Method Oxygen Flow Rate 10/16/24 17:30 10/16/24 17:35 10/16/24 17:35 Temperature Pulse Rate 78 75 Respiratory Rate 20 22 Blood Pressure 161/76 H Pulse Oximetry 97 97 Oxygen Delivery Method Oxygen Flow Rate 10/16/24 17:40 10/16/24 17:40 10/16/24 17:45 Temperature Pulse Rate 77 75 Respiratory Rate 18 21 Blood Pressure 163/77 H Pulse Oximetry 96 97 Oxygen Delivery Method Oxygen Flow Rate 10/16/24 17:45 10/16/24 17:50 10/16/24 17:50 Temperature Pulse Rate 78 Respiratory Rate 23 Blood Pressure 160/74 H 177/82 H Pulse Oximetry 97 Oxygen Delivery Method Oxygen Flow Rate 10/16/24 17:55 10/16/24 17:55 10/16/24 18:00 Temperature Pulse Rate 76 74 Respiratory Rate 17 18 Blood Pressure 165/73 H Pulse Oximetry 97 97 Oxygen Delivery Method Oxygen Flow Rate 10/16/24 18:00 10/16/24 18:05 10/16/24 18:05 Temperature Pulse Rate 75 Respiratory Rate 20 Blood Pressure 165/75 H 157/74 H Pulse Oximetry 96 Oxygen Delivery Method Oxygen Flow Rate 10/16/24 18:10 10/16/24 18:10 10/16/24 18:15 Temperature Pulse Rate 75 Respiratory Rate 22 Blood Pressure 163/74 H 158/73 H Pulse Oximetry 94 Oxygen Delivery Method Oxygen Flow Rate 10/16/24 18:15 10/16/24 18:20 10/16/24 18:20 Temperature Pulse Rate 75 74 Respiratory Rate 21 21 Blood Pressure 152/71 H Pulse Oximetry 97 95 Oxygen Delivery Method Oxygen Flow Rate 10/16/24 18:25 10/16/24 18:25 10/16/24 18:30 Temperature Pulse Rate 75 75 Respiratory Rate 20 20 Blood Pressure 156/74 H Pulse Oximetry 95 95 Oxygen Delivery Method Oxygen Flow Rate 10/16/24 18:30 10/16/24 18:35 10/16/24 18:35 Temperature Pulse Rate 77 Respiratory Rate 22 Blood Pressure 155/72 H 149/72 H Pulse Oximetry 96 Oxygen Delivery Method Oxygen Flow Rate 10/16/24 18:40 10/16/24 18:40 10/16/24 18:45 Temperature Pulse Rate 76 Respiratory Rate 20 Blood Pressure 150/72 H 149/71 H Pulse Oximetry 96 Oxygen Delivery Method Oxygen Flow Rate 10/16/24 18:45 10/16/24 18:50 10/16/24 18:50 Temperature Pulse Rate 75 76 Respiratory Rate 24 28 H Blood Pressure 154/74 H Pulse Oximetry 95 95 Oxygen Delivery Method Oxygen Flow Rate 10/16/24 18:55 10/16/24 18:55 10/16/24 19:00 Temperature Pulse Rate 77 73 Respiratory Rate 35 H Blood Pressure 147/67 H Pulse Oximetry 95 97 Oxygen Delivery Method Oxygen Flow Rate 10/16/24 19:01 10/16/24 19:01 10/16/24 19:05 Temperature Pulse Rate 77 Respiratory Rate 20 Blood Pressure 101/56 L 129/62 Pulse Oximetry 96 Oxygen Delivery Method Oxygen Flow Rate 10/16/24 19:05 10/16/24 19:10 10/16/24 19:10 Temperature Pulse Rate 74 72 Respiratory Rate 27 H 23 Blood Pressure 159/72 H Pulse Oximetry 96 94 Oxygen Delivery Method Oxygen Flow Rate 10/16/24 19:11 10/16/24 19:15 10/16/24 19:15 Temperature Pulse Rate 112 H 74 Respiratory Rate 18 20 Blood Pressure 149/68 H Pulse Oximetry 96 96 Oxygen Delivery Method Oxygen Flow Rate 10/16/24 19:20 10/16/24 19:20 10/16/24 19:30 Temperature Pulse Rate 73 Respiratory Rate 18 Blood Pressure 146/70 H 163/78 H Pulse Oximetry 95 Oxygen Delivery Method Oxygen Flow Rate 10/16/24 19:30 10/16/24 19:45 10/16/24 19:45 Temperature Pulse Rate 75 75 Respiratory Rate 22 Blood Pressure 146/69 H Pulse Oximetry 97 96 Oxygen Delivery Method Oxygen Flow Rate 10/16/24 20:00 10/16/24 20:00 10/16/24 20:15 Temperature Pulse Rate 74 Respiratory Rate 19 Blood Pressure 151/72 H 146/71 H Pulse Oximetry 97 Oxygen Delivery Method Oxygen Flow Rate 10/16/24 20:15 10/16/24 20:50 10/16/24 21:30 Temperature 98.0 F Pulse Rate 76 84 Respiratory Rate 16 18 Blood Pressure 142/69 H Pulse Oximetry 97 95 Oxygen Delivery Method Room Air Oxygen Flow Rate 0 10/16/24 23:52 Temperature 97.4 F L Pulse Rate 75 Respiratory Rate 18 Blood Pressure 138/69 Pulse Oximetry 95 Oxygen Delivery Method Oxygen Flow Rate 0 Patient admitted to room 219 from ER related to concussion following fall earlier today. Reports she slipped on driveway and rolled down but has no memory following fall until EMT's were at her home. Has multiple abrasions/bruises to face and chin with dried blood and bandaid dressings. Also noted abrasions to left knee. Was able to ambulated to bathroom with SBA and denied any dizziness or nausea. Oriented except to date but takes time to think before answering questions. Breath sounds CTA with RA sat of 95%; placed on continuous oximetry as per MD order. HRR and telemetry readings have been SR. BP elevated at 142/67 which was improved from ER readings. Denied any nausea. BT present and abdomen is soft; denied constipation or diarrhea. Denied dysuria and urine was sent to lab as ordered. Is able to turn herself in bed. Refused use of SCD's so was educated on prevention of DVT. Having 5/10 left wrist pain but states it is tolerable and denies need for pain medication; is wearing left wrist splint which was placed in ER. Fall risk score was high and bed alarm is activated. Oriented to room and bed controls.
[2024-10-17 03:56] VITALS: BP 135/73; PULSE 77; RESP 18; TEMP 37.1; O2SAT 95
[2024-10-17 06:51] LABS: Add Manual Diff / Slide Review NO; Basophils Absolute Auto 100 /uL (0-100); Basophils Percent Auto 0.6 % (0-2); Eosinophils Absolute Auto 0 /uL (0-450); Eosinophils Percent Auto 0.4 % (2-4); Hematocrit 41.6 % (36-46); Hemoglobin 14.2 g/dL (12.0-16.0); Lymphocytes Absolute Auto 1700 /uL (1100-4500); Lymphocytes Percent Auto 18.3 % (25-40); Mean Corpuscular HGB Conc 34.2 % (30-36); Mean Corpuscular Hemoglobin 31.1 PG (26-34); Mean Corpuscular Volume 90.9 fL (80-100); Monocytes Absolute Auto 1000 /uL (0-900); Monocytes Percent Auto 10.6 % (3-14); Neutrophils Absolute Auto 6400 /uL (1500-7000); Neutrophils Percent Auto 70.1 % (50-75); Platelet Count 220 X10^3/uL (150-400); Red Blood Cell Count 4.58 X10^6/uL (4.0-5.2); Red Cell Distribution Width 13.8 % (11.6-14.8); White Blood Cell Count 9.1 X10^3/uL (4.5-11.0)
[2024-10-17 07:05] LABS: Alanine Aminotransferase 26 IU/L (<35); Albumin 3.9 g/dL (3.5-5.0); Albumin Globulin Ratio 1.4 (1.0-2.8); Alkaline Phosphatase 44 U/L (38-126); Aspartate Aminotransferase 49 IU/L (14-36); BUN Creatinine Ratio 25.7 (6-22); Bilirubin Total 0.6 mg/dL (0.2-1.3); Blood Urea Nitrogen 18 mg/dL (7-17); Calcium 9.2 mg/dL (8.4-10.2); Carbon Dioxide 26 mmol/L (22-32); Chloride 108 mmol/L (98-107); Estimated Glomerular Filt Rate > 60 mL/min (>60); Globulin 2.8 g/dL (1.7-4.1); Glucose 97 mg/dL (80-110); HEMOLYSIS < 15 (0-50); Lipase 66 U/L (23-300); Potassium 4.3 mmol/L (3.4-5.1); Sodium 138 mmol/L (137-145); Total Protein 6.7 g/dL (6.3-8.2)
--- NOTE | 2024-10-17 07:45 | P.PN_ITS ---
Subjective Subjective Interval history: Summary: Анна Metcalf is a 79 y/o Female with h/o HTN, benign cardiac murmur, Alopecia, Hypothyroidism, DJD, OA, and is hard of hearing , who was in her drive way, taking her trash out, when she slipped on the icy surface , falling to the ground hitting her head. Patient states she recalls taking the garbage out, and falling but has no recollection of rest of the events, her neighbor finding her on the ground, not responding and an ambulance called for her. Next thing pt recalls is when she was in the ED. She had noted Left wrist pain after her fall. Denies headache, Vision loss or double vision. no speech deficit. No weakness of any extremity. S: She feels better today. She still has a fair amount of left wrist and shoulder pain. Exam Vital Signs (past 8 hours): - 10/16/24 23:52 10/17/24 03:56 Temperature 97.4 F L 98.8 F Pulse Rate 75 77 Respiratory Rate 18 18 Blood Pressure 138/69 135/73 Pulse Oximetry 95 95 Oxygen Flow Rate 0 0 Oxygen Delivery Method Room Air Oxygen Flow Rate 0 Narrative Exam Narrative: NAD, alert and oriented. Fluent speech. Left side of her face is very bruised. Lungs are clear, normal rate and effort. Heart is regular, no murmur gallop or rub. Abdomen is soft, non distended. Extremities are free of edema. Objective Imaging CT scan - head: Radiologist's impression: No acute changes. Labs 10/17/24 06:36 10/17/24 06:36 Labs: Laboratory Results - last 24 hr 10/16/24 10/16/24 10/16/24 16:17 16:19 21:20 WBC 8.8 RBC 4.71 Hgb 14.5 Hct 42.8 MCV 90.9 MCH 30.8 MCHC 33.9 RDW 13.4 Plt Count 237 Neut % (Auto) 71.1 Lymph % (Auto) 19.1 L [place] % (Auto) 8.1 Eos % (Auto) 1.1 L Baso % (Auto) 0.6 Neut # (Auto) 6300 Lymph # (Auto) 1700 [place] # (Auto) 700 Eos # (Auto) 100 Baso # (Auto) 100 PT 12.1 INR 1.1 Sodium 135 L Potassium 4.2 Chloride 102 Carbon Dioxide 25 BUN 34 H Creatinine 0.76 Estimated GFR > 60 BUN/Creatinine Ratio 44.7 H Glucose 132 H Calcium 9.4 Total Bilirubin 0.4 AST 43 H ALT 28 Alkaline Phosphatase 47 Ammonia Total Protein 7.2 Albumin 4.2 Globulin 3.0 Albumin/Globulin Ratio 1.4 Lipase 107 TSH 3.55 Urine Color Urine Appearance Ur Specific [place] Urine Protein Urine Glucose (UA) Urine Ketones Urine Occult Blood Urine Nitrate Urine Bilirubin Urine Urobilinogen Ur Leukocyte Esterase Urine RBC Urine WBC Ur Squamous Epith Cells Calcium Oxalate Crystal Urine Bacteria Hyaline Casts Ur Culture Indicated? Vol Urine Centrifuged U Opiates 300ng/mL cut Negative Ur Oxycodone Screen Negative Urine Methadone Screen Negative Ur Barbiturates Screen Negative U Tricyclic Antidepress Negative Ur Phencyclidine Scrn Negative Ur Amphetamines Screen Negative U Methamphetamines Scrn Negative Ur MDMA Scrn (Ecstasy) Negative U Benzodiazepines Scrn Negative Urine Cocaine Screen Negative U Marijuana (THC) Screen Negative Urine pH Normal Urine Specific [place] Normal Ethyl Alcohol < 10 Ur Creatinine Normal 10/16/24 10/16/24 10/17/24 21:25 22:40 06:36 WBC 9.1 RBC 4.58 Hgb 14.2 Hct 41.6 MCV 90.9 MCH 31.1 MCHC 34.2 RDW 13.8 Plt Count 220 Neut % (Auto) 70.1 Lymph % (Auto) 18.3 L [place] % (Auto) 10.6 Eos % (Auto) 0.4 L Baso % (Auto) 0.6 Neut # (Auto) 6400 Lymph # (Auto) 1700 [place] # (Auto) 1000 H Eos # (Auto) 0 Baso # (Auto) 100 PT INR Sodium 138 Potassium 4.3 Chloride 108 H Carbon Dioxide 26 BUN 18 H Creatinine 0.70 Estimated GFR > 60 BUN/Creatinine Ratio 25.7 H Glucose 97 Calcium 9.2 Total Bilirubin 0.6 AST 49 H ALT 26 Alkaline Phosphatase 44 Ammonia < 9 L Total Protein 6.7 Albumin 3.9 Globulin 2.8 Albumin/Globulin Ratio 1.4 Lipase 66 TSH Urine Color Yellow Urine Appearance Clear Ur Specific [place] 1.020 Urine Protein Negative Urine Glucose (UA) Negative Urine Ketones Negative Urine Occult Blood Negative Urine Nitrate Negative Urine Bilirubin Negative Urine Urobilinogen 0.2 Ur Leukocyte Esterase Negative Urine RBC 0-1/hpf Urine WBC 0-1/hpf Ur Squamous Epith Cells 0-1 /hpf Calcium Oxalate Crystal Few H Urine Bacteria Occasional (0-1) Hyaline Casts 0-1/lpf Ur Culture Indicated? Cult not indicated Vol Urine Centrifuged 10ml (spun) U Opiates 300ng/mL cut Ur Oxycodone Screen Urine Methadone Screen Ur Barbiturates Screen U Tricyclic Antidepress Ur Phencyclidine Scrn Ur Amphetamines Screen U Methamphetamines Scrn Ur MDMA Scrn (Ecstasy) U Benzodiazepines Scrn Urine Cocaine Screen U Marijuana (THC) Screen Urine pH 6.0 Urine Specific [place] Ethyl Alcohol Ur Creatinine PFSH Medical History Hypertension not at goal Caregiver stress Alopecia Hyperlipidemia Hypothyroidism Benign essential HTN Heart murmur Social History household members: spouse Smoking Status: Never smoker Assessment & Plan Assessment & Plan narrative: 1) Ground-level fall, resolved. Problem details: Secondary to slipping on icy driveway Status: Acute Plan: Pt has had several imaging studies done in ED, including bilateral wrist Xrays, CT spine, reviewed, with no fractures, and no acute changes on Head CT Pt admitted for Observation sec to Dehydration/ as she felt nauseated and light headed when stood up , and IVF ordered PT/ OT eval in the morning Fall Precautions (2) Concussion, improved. Problem details: Sec to GLF , hitting head against concrete, likely has concussion, no acute changes on CT head or CT spine / No ICH . Pt experiencing amnesia of events following her fall. No other neurologic deficits. Qualifiers: Encounter type: initial encounter Loss of consciousness presence/duration: with LOC of 30 min or less Qualified Code(s): S06.0X1A - Concussion with loss of consciousness of 30 minutes or less, initial encounter Status: Acute Plan: Monitor closely for any worsening of her amnesia which is most likely sec to a concussion sec to her GLF/ hitting her head PT/ OT eval in the morning (3) Probable slip on driveway with CHI. Improving. Problem details: Most likely sec to hitting her head/ concussion No acute findings on CT head. EKG : no acute changes, no arrythmias as noted in HPI Shall continue Cardiac monitoring. Echo and carotid dopplers ordered for the morning. Pt has had an echo done 05/02/24 ( LVEF : 60 / mild Valvular abn / Otherwise WNL) for cardiac murmur evaluation. Electrolytes WNL/ CBC/UA WNL Qualifiers: Syncope type: unspecified Qualified Code(s): R55 - Syncope and collapse Status: Acute (4) Hypertension not at goal: Problem details: Pt with h/o HTN, her SBP was elevated initial 203 mm Hg , and repeat in 170s, in ED, was given pain relief with better control of SBP Status: Acute Plan: Continue Home Valsartan Continue Cardiac monitoring and checking VS prn PLAN: Observe mental status telemetry SHAMIKA: 0-1 days. Time-Based Coding :: [TOTAL MINUTES] spent with patient and on the chart (including review of chart, obtaining history, exam, reviewing outside data, placing orders, documenting exam and treatment plan, and counseling patient) on [DATE].
[2024-10-17] MEDS: HYDROXYCHLOROQUINE 200 MG TABLET PO ×2 (09:28→20:18)
[2024-10-17] MEDS: VALSARTAN 80 MG TABLET PO (09:28)
--- NOTE | 2024-10-17 09:30 | OT.IP.EVAL ---
Current Diagnoses Essential (primary) hypertension (10/16/24) Dizziness and giddiness (10/16/24) Syncope and collapse (10/16/24) Concussion with loss of consciousness of 30 minutes or less, initial encounter (10/16/24) Fall on same level, unspecified, initial encounter (10/16/24) Past Medical History (Last Reviewed 10/17/24 @ 07:48 by Lucas Gonzalez MD) Alopecia Benign essential HTN Caregiver stress Heart murmur Hyperlipidemia Hypertension not at goal Hypothyroidism Occupational Therapy Inpatient Evaluation/Re-Eval M1 PT/OT-IP Prior Functional Status Start: 10/17/24 10:13 Freq: NEEDED Status: Active Protocol: Document 10/17/24 10:13 [facility] (Rec: 10/17/24 10:43 [facility] [id number]) Medical Review Prior Functional Status Medical History Reviewed Yes Communication I Mobility and Gait I Activities of Daily Living and IADL's I Social History Household Members spouse Living Arrangements House Number of Floors (Floors) 3 or More Floors Number of Stairs To Enter/Railing? Pt states prefer to go to the back of the house and threshold to get to the main level. One flight of steps and left rail to get to the bedroom. 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 M2 OT-IP Current Condition Start: 10/17/24 10:13 Freq: Status: Active Protocol: Document 10/17/24 10:13 [facility] (Rec: 10/17/24 10:43 [facility] [id number]) Occupational Therapy Current Condition Current Condition Evaluation Date 10/17/24 Treatment Diagnosis GLF, Concussion Diagnosis Onset Date 10/16/24 M3 OT- IP Subjective and Pain Start: 10/17/24 10:13 Freq: Status: Active Protocol: Document 10/17/24 10:13 [facility] (Rec: 10/17/24 10:43 [facility] [id number]) OT- Subjective Occupational Therapy Visit Type Type Initial Evaluation Visit Start Time 08:30 Visit Stop Time 09:30 Occupational Therapy Visit Comments Patient Comments Pt agreed to get up and work with OT. Patient/Caregiver Goals TO go home. OT Pain Assessment Pain When Pain Assessed At Rest Pain Present Pain Present Pain Reported Location Left Wrist Pain Behaviors Facial Grimacing,Holding Area Management Techniques Apply Cold,Re-positioning M4 OT- IP ADL's Start: 10/17/24 10:13 Freq: Status: Active Protocol: Document 10/17/24 10:13 [facility] (Rec: 10/17/24 10:43 [facility] [id number]) OT [id number] General Evaluation Self-Feeding Ability Independent OT ADL-Grooming Comments OT Grooming Comments Pt states to do after breakfast. OT ADL-Dressing Comments OT Dressing Comments NOt performed. OT ADL-Toileting Comments OT Toileting Comments Pt states did earlier. OT ADL-Bathing Comments OT Bathing Comments Pt will benefit from using the built in seat at home. M5 OT- IP IADL's Start: 10/17/24 10:13 Freq: Status: Active Protocol: Document 10/17/24 10:13 [facility] (Rec: 10/17/24 10:43 [facility] [id number]) OT-Instrumental Activities of Daily Living Home Safety Awareness Awareness of Need for Assistance at Home Decreased Awareness Home Safety Comments Pt insists that she will be fine to take care of herself initially. At the end of the session, pt admits that she is unsteady on her feet and not thinking as well as she usually does. Medication Management Medication Management Comments Best to have supervision or to double check that she is taking the med accurately. Money Management Money Management Comments Best to have assist as needing increased time to do math calculations at this time. Meal Preparation Meal Preparation Comments Pt would benefit from assist. Diesel Pile Driver Operator Diesel Pile Driver Operator Comments Pt states has a food service technician that come every two weeks. Driving Driving Concerns Identified Regarding Safety M6 OT- IP Functional Cognition Start: 10/17/24 10:13 Freq: Status: Active Protocol: Document 10/17/24 10:13 [facility] (Rec: 10/17/24 10:43 [facility] [id number]) Cognitive Factors Limiting Selfcare Function Cognitive Ability Level of Alertness Alert Patient Orientation Name,Age,Birthday,Month,Date, Year,Day of Week,Place, Situation Ability to Follow Commands Able to Follow One Step Commands Memory Description Working Impaired Safety Awareness Underestimates Need for Assistance Cognitive Tests SLUMS Pt scored 27/30 which implies normal for cognition however pt needing increased time for math calculations, and having to correct herself multiple times during the assessment. Pt able to recall 4/5 objects after time passed, and not able to draw the hour hand son the clock correctly. Cognitive Comments Cognitive Assessment Comments Pt very hard of hearing and does not have her hearing aid charger operator helper present. Pt does better when able to see therapist mouth in order to comprehend information. Pt finally at the end of the session agrees that she is not at her baseline cognitive which is probably affected by her concussion OT- Vision and Hearing OT- Hearing Assessment OT- Hearing Assessment Hearing Impaired,Use of Hearing Aids OT- Vision Assessment Visual Acuity Glasses For Reading Visual Attentiveness WFL Occular Pursuits WFL Visual Convergence WFL Visual Carranza WFL M7 OT- IP Mobility and Balance Start: 10/17/24 10:13 Freq: Status: Active Protocol: Document 10/17/24 10:13 [facility] (Rec: 10/17/24 10:43 [facility] [id number]) OT- Bed Mobility Assessment Supine to Sit Supine to Sit Assist Independent Sit to Supine Sit to Supine Assist Independent Scooting Scooting to Edge of Bed Independent Scooting Up and Down in Bed Independent OT-Transfer Assessment Sit to and From Stand Sit to and from Stand Standby Assistance Transfers Transfer Ability Standby Assistance,Contact Guard Assistance Technique Transfer Destination Bed,Toilet Transfer Technique Stand Step Pivot Devices Transfer Assistive Devices Gait Belt Comments Mobility Comments Independent with bed mobility and trial on without device and pt close SBA to occasional CGA as slight lean to the left at times. Pt at this time better to use a device for safety pr someone to assist her. Pt able to stand on right foot for over 10 sec and left foot 5 sec. OT- Balance Assessment Sitting Balance and Reactions Static Sitting Balance Ability Normal Dynamic Sitting Balance Ability Normal Standing Balance and Reactions Static Standing Balance Ability Good Dynamic Standing Balance Ability Fair M8 OT- IP Objective Assessments Start: 10/17/24 10:13 Freq: Status: Active Protocol: Document 10/17/24 10:13 [facility] (Rec: 10/17/24 10:43 [facility] [id number]) OT Gross Range of Motion Upper Extremity Range of Motion Assessment Right Impaired OT Strength Upper Extremity Strength Assessment Right Impaired Comments Strength Comments Pt has more pain in left wrist extension. Left wrist very swollen and elevated pt's hand with ice. 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 Suggested to pt if pain continues to get her hand evaluated again. OT- Coordination Assessment Upper Extremity Finger to Nose Test Left UE Impaired Comments Coordination Comments Slightly off with left finger. M9 OT- IP Assessment and Plan Start: 10/17/24 10:13 Freq: Status: Active Protocol: Document 10/17/24 10:13 [facility] (Rec: 10/17/24 10:43 [facility] [id number]) OT Summary Assessment and Plan Potential Rehabilitation Potential Excellent Analytic Complexity at Evaluation Moderate Summary OT Impairments Pain,Range of Motion,Strength, Balance,Functional Cognition, Functional Mobility,Grooming, Dressing,Toileting,Bathing, Toilet Transfers,Shower Transfers,Activity Tolerance Progress Towards Goals Slow Progress due to Medical Issues Assessment Summary Pt MOD complexity s/p GLF on the ice and now a little unsteady on her feet, needing increased time for problem solving, complaining of light sensitivity and head ache. Left side of her face bruises and left wrist very swollen. Pt has concussive symptoms and at this time best to use a device and have home health. Goals Dressing Goal Independent Toileting Goal Independent Bathing Goal Independent Toilet Transfer Goal Independent Shower Transfer Goal Independent Days to Meet Goals 5 Frequency of Treatment Other frequency 5x/week Treatment Plan OT Treatment Plan ADL Training,Functional Mobility,Patient/Family Education,Discharge Planning Discharge Recommendations OT Discharge Recommendations Home with Assistance,Home Health Transportation Needs at Discharge Private Vehicle
[2024-10-17 09:51] VITALS: BP 146/56; PULSE 106; RESP 17; TEMP 36.2; O2SAT 96
--- NOTE | 2024-10-17 11:26 | PT.IIE ---
Current Diagnoses Essential (primary) hypertension (10/16/24) Dizziness and giddiness (10/16/24) Syncope and collapse (10/16/24) Concussion with loss of consciousness of 30 minutes or less, initial encounter (10/16/24) Fall on same level, unspecified, initial encounter (10/16/24) Medical History (Last Reviewed 10/17/24 @ 07:48 by Lucas Gonzalez MD) Alopecia Benign essential HTN Caregiver stress Heart murmur Hyperlipidemia Hypertension not at goal Hypothyroidism Physical Therapy Inpatient Evaluation/Re-Eval M1 PT/OT-IP Prior Functional Status Start: 10/17/24 10:13 Freq: NEEDED Status: Active Protocol: Document 10/17/24 10:31 MB (Rec: 10/17/24 10:55 MB [id number]) Medical Review Prior Functional Status Medical History Reviewed Yes Communication I Mobility and Gait I Activities of Daily Living and IADL's I Social History Household Members spouse Living Arrangements House Number of Floors (Floors) 3 or More Floors Number of Stairs To Enter/Railing? Pt states prefer to go to the back of the house and threshold to get to the main level. One flight of steps and left rail to get to the bedroom. Home Environment Standard Height Toilet,Walk in Shower,Built-In Shower Seat Home Equipment Four Wheel Walker,Straight Cane,Hand Held Shower,Grab Bars In Shower Employment Status Retired Additional Social History Comment Pt assist to take care of her who uses a walker. M2 PT-IP Current Condition Start: 10/17/24 08:01 Freq: NEEDED Status: Active Protocol: Document 10/17/24 10:31 MB (Rec: 10/17/24 10:55 MB [id number]) Physical Therapy Current Condition Current Condition Evaluation Date 10/17/24 Treatment Diagnosis Ground level fall, LOC, injury to left face and left hand M3 PT-IP Subjective Start: 10/17/24 08:01 Freq: NEEDED Status: Active Protocol: Document 10/17/24 10:31 MB (Rec: 10/17/24 10:55 MB [id number]) Subjective Physical Therapy Visit Type Type Initial Evaluation Visit Start Time 10:31 Visit Stop Time 10:52 Number of VEGETABLE WORKER Visits 0 Physical Therapy Visit Comments Patient Comments Pt reports hearing aides are not charged and her hot billet shear operator is not in the hospital. She reports soreness from fall and pain in left hand that is better with the icing. Therapy Pain Assessment Pain When Pain Assessed At Rest Pain Present Pain Present Pain Reported Location Head Scale Used Not rated Left Wrist Scale Used Not rated M4 PT-IP Mobility and Gait Start: 10/17/24 08:01 Freq: NEEDED Status: Active Protocol: Document 10/17/24 10:31 MB (Rec: 10/17/24 11:26 MB [id number]) PT-Bed Mobility Assessment Rolling Type of Rolling Roll to Right Level of Assist Standby Assistance Supine to Sit Supine to Sit Standby Assistance Sit to Supine Sit to Supine Standby Assistance Scooting Scooting to Edge of Bed Standby Assistance PT-Transfer Assessment Sit to and From Stand Sit to and from Stand Contact Guard Assistance Equipment Transfer Assistive Device Gait Belt Orthotic/Prosthetic Devices or Brace: No Transfers Transfer Technique Ambulation to steps and back to bed Transfer Ability Level of Assist Contact Guard Assistance Comments Mobility Comments Pt with decreased balance, occ crosses one foot in front of the other with gait and appears to have a mild minor change/whip correction with right foot with advancing the leg Gait Assessment Gait Gait Assistance Required: Contact Guard Assist Distance (Feet) 100 Able to Maintain Weight Bearing Status Yes During Gait Assistive Devices Assistive Device Gait Belt Orthotic/Prosthetic Devices or Brace: No Gait Deviations General Gait Pattern Antalgic,Narrow Based Gait Factors Limiting Gait Function Factors Limiting Gait Function Incoordination,Poor Balance Comments Gait Comments See gait comments above Stair Climbing Assessment Evaluation Level of Assist On Stairs Contact Guard Assistance Technique/Endurance Stair Climbing Direction Ascend and Descend Stair Climbing Technique Step Over Step,Step to Step Number of Steps Climbed 3 Query Text: Stair Climbing Set # Repetitions (reps) 2 Comments Stair Climbing Comments Use of right rail ascend with right hand and same rail but turns to use right hand again with descend d/t left hand pain, tends to [place] feet with descend and this is not the safest PT-Balance Assessment Sitting Balance and Reactions Static Sitting Balance Ability Good Dynamic Sitting Balance Ability Good Standing Balance and Reactions Static Standing Balance Ability Good Dynamic Standing Balance Ability Fair Device Used Gait belt Comments Other Balance Tests/Deviations/Treatment See gait description : M5 PT-IP Objective Assessments Start: 10/17/24 08:01 Freq: NEEDED Status: Active Protocol: Document 10/17/24 10:31 MB (Rec: 10/17/24 11:26 MB [id number]) Orientation Orientation/Cognition Level of Alertness Alert Language Function Ability Hard of Hearing Safety Awareness Decreased Safety Awareness Comments Pt is severely [place] and does not answer all questions because cannot hear PT when not reading PT's lips and she frequently looks away when talking, she also reports not having her glasses Gross Range of Motion Upper Extremity ROM Assessment Left Impaired Impairments Defer to OT, left hand changes Lower Extremity ROM Assessment Within Functional Limits Strength Lower Extremity Strength Assessment Within Functional Limits Comments Strength Comments Deferred MMT d/t pain and pt has normal range and strength with gait Coordination Assessment Assessment Coordination Comments Right hand only testing for finger to nose and normal, left hand not tested d/t IV and left wrist pain and injury . Oculomotor screen is also negative and pt denies dizziness M6 PT-IP Treatment Start: 10/17/24 08:01 Freq: NEEDED Status: Active Protocol: Document 10/17/24 10:31 MB (Rec: 10/17/24 11:26 MB [id number]) Physical Therapy Treatment Other Treatments Other Treatment Performed Ed in safety/care with gait and benefits of cane and pt does not want to try today, she is receptive to HH services M7 PT-IP Assessment and Plan Start: 10/17/24 08:01 Freq: NEEDED Status: Active Protocol: Document 10/17/24 10:31 MB (Rec: 10/17/24 11:26 MB [id number]) PT Summary Assessment and Plan Potential Rehabilitation Potential Good Status of Condition at Evaluation Evolving Summary Impairments Pain,ROM,Strength,Balance, Coordination,Bed Mobility, Transfers,Gait,Activity Tolerance Progress Towards Goals Progressing Toward Goals Assessment Summary Pt is a 79 y/o female presenting with SNYDER and left wrist pain after fall outside, LOC and possible concussion. She denies vision changes and dizziness today. Pt presents severely [place] and her hearing aides could not charge overnight d/t hot billet shear operator not in hospital. Pt also reports not having her glasses. Pt presents with imbalance with transfers, standing and gait today. She may benefit from LRAD training. 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 Recommend HHPT consult at d/c and then progress to OPPT after she returns to PCP and is able to drive for post-concussive balance and vestibular assessment and training. Goals Bed Mobility Goal Independent Transfer Goal Independent,Cane Gait Goal Independent,Cane Gait Distance 150 Other Goals Pt will gait train without AD or with cane. Pt will ascend and descend 9 steps with right rail and mod I. Pt will perform WNLs on a standardized balance test to decrease fall risk. Days to Meet Goals 3 Frequency of Treatment Frequency Of Treatment Once a Day Other frequency x1 Treatment Plan Physical Therapy Treatment Plan Bed Mobility Training,Transfer Training,Gait Training, Therapeutic Exercise,Balance Retraining,Discharge Planning, Hot or Cold Pack,Neuromuscular Re-ed,Coordination Retraining ,Manual Therapy Recommendations To Nursing Amount of Assist Needed 1 Person Assist Discharge Recommendations PT Discharge Recommendations Home with Assistance,Home Health Transportation Needs at Discharge Private Vehicle
[2024-10-17 13:00] VITALS: BP 149/70; PULSE 78; RESP 17; TEMP 35.9; O2SAT 98
--- NOTE | 2024-10-17 15:33 | CM.DANOTE ---
Initial DCP Assessment Visit Note Reviewed EMR and team rounds for patient's medical status and updates. Met with patient at bedside to introduce self and role. Patient was found to be alert and oriented. Patient was calm and cooperative during our conversation. Patient lives at home with her spouse. she said she takes care of her spouse. She is fully independent with ADLs and she transports herself by car. she does not use any DME. Plan is to return home with home health PT/OT after hospital stay. Patient may reach out to 's PCP to request HH for him if she cannot help with the care she has been helping with. Payor: [facility] PCP: Dr Sandoval Patient is a 79 yo F who came to the ER after GLF at home. she fell in driveway, hit heat, was knocked unconscious then rolled down the driveway. All imaging of face, head, neck and left wrist at ER was negative for broken bones. Patient was diagnosed with a concussion. she has lacerations, bruising, and swelling of left face and left wrist is sore and swollen. Patient will discharge tomorrow if she is stable. Patient is motivated to work with PT/ OT when she returns home. DCP will continue to monitor for any evolving needs in relation to discharging home. Discharge Planning/Care Management CM Discharge Assessment Start: 10/17/24 15:25 Freq: Status: Active Protocol: Document 10/17/24 15:25 KOBE (Rec: 10/17/24 15:33 AMAN [id number]) Discharge Planning Assessment Assigned Validation Leader Terry Solitario RN DPOA/Assigned Designee Name Patient said this is her first and her youngest son. Contact Information She will bring a copy of this form to her PCP to be scanned. Advance Directives? Yes Advance Directives on File No: Patient will bring a copy to her PCP. History Provided By Patient,Medical Record Expected Length of Stay 2 Has Patient been admitted in last 30 No days? Prior Living Arrangements House Household Members spouse Comment Patient takes care of her spouse. Type of transporation used prior to Drives own vehicle admit Independent with ADL's Yes Is patient alert and oriented? Yes Comment NO assistance needed but she will need PT/OT to strengthen and improve balance. Caregiver for Another Yes: Comment None Comment None Patient/Family Preference Home with Home Health Comment Referral sent to [facility] on 02/06/26 by fax and email. Barriers to Discharge No Discharge Plan Home Community Services Physical Therapy,Occupational Therapy Referrals Initiated Home Health Additional Comment Melany/ Serafin: IP 66 yo M from ER 10/17 with worse left sided weakness and history of stroke with lt side deficits from 1- 2 years ago. CTs and MRI today showed new ischemic stroke. Patient alert and oriented, independent, motivated to recover to baseline. Plan: DC to [facility], possibly tomorrow. Referral sent and approved by , they are working on insurance authorization. Whiteboard Updated in Patient Room with Yes name and ext. # of Validation Leader Review Status In Process Please Provide Date Initial DC 10/17/24 Assessment Was Performed
[2024-10-17] MEDS: IBUPROFEN 400 MG TABLET PO (17:19)
[2024-10-17 18:08] VITALS: BP 147/65; PULSE 92; RESP 15; TEMP 37.1; O2SAT 97
[2024-10-17 20:10] VITALS: BP 143/65; PULSE 69; RESP 18; TEMP 36.6; O2SAT 98
[2024-10-17] MEDS: ACETAMINOPHEN 325 MG TABLET 650 MG PO (20:18)
[2024-10-18] VITALS (7 sets, daily range): BP systolic 96–163; BP diastolic 60–75; PULSE 64–88; RESP 14–18; TEMP 35.9–37.1; O2SAT 94–99
--- NOTE | 2024-10-18 08:10 | PT.IPTN ---
Current Diagnoses Essential (primary) hypertension (10/16/24) Dizziness and giddiness (10/16/24) Syncope and collapse (10/16/24) Concussion with loss of consciousness of 30 minutes or less, initial encounter (10/16/24) Fall on same level, unspecified, initial encounter (10/16/24) Physical Therapy Treatment Note M2 PT-IP Current Condition Start: 10/17/24 08:01 Freq: NEEDED Status: Active Protocol: Document 10/18/24 08:01 SP (Rec: 10/18/24 08:38 SP [id number]) Physical Therapy Current Condition Current Condition Evaluation Date 10/17/24 Treatment Diagnosis Ground level fall, LOC, injury to left face and left hand M3 PT-IP Subjective Start: 10/17/24 08:01 Freq: NEEDED Status: Active Protocol: Document 10/18/24 08:01 SP (Rec: 10/18/24 08:38 SP [id number]) Subjective Physical Therapy Visit Type Type Treatment Note Visit Start Time 08:01 Visit Stop Time 08:15 Number of CUSTOMER SUPPORT ASSISTANT Visits 1 Physical Therapy Visit Comments Patient Comments Pt agreeable to working with therapy. Therapy Pain Assessment Pain When Pain Assessed During Mobility Pain Present Pain Present Pain Reported Location Left Wrist Scale Used Not rated M4 PT-IP Mobility and Gait Start: 10/17/24 08:01 Freq: NEEDED Status: Active Protocol: Document 10/18/24 08:01 SP (Rec: 10/18/24 08:38 SP [id number]) PT-Bed Mobility Assessment Supine to Sit Supine to Sit Independent Scooting Scooting to Edge of Bed Independent PT-Transfer Assessment Sit to and From Stand Sit to and from Stand Standby Assistance Equipment Transfer Assistive Device Gait Belt Orthotic/Prosthetic Devices or Brace: No Transfers Transfer Destination Chair,Toilet Transfer Technique ambulation no AD Transfer Ability Level of Assist Standby Assistance Comments Mobility Comments I in bed mob, SBA during gait no AD bed >bathroom> sink stable no sways static and dynamic mobility. Pt stated feeling dizzy when finished brushing her teeth so returned to chair. BP taken 74/37 HR 58, 2 min sitting 93/53 HR 58, 4 min sitting 89/53 but reports feeling less dizzy and wanting to stay up in chair for breakfast. CUSTOMER SUPPORT ASSISTANT notified SUPERVISOR [employer] about dizziness and continue assessment. Pt requested to check her blood sugar for safety as well. Pt reported L wrist still little swollen but better and wrist brace uncomfortable, wondered if can get GWENDOLYN wrap for support. CUSTOMER SUPPORT ASSISTANT notified SUPERVISOR [employer] and would take over care. Pt had call light CP and all needs in reach. CUSTOMER SUPPORT ASSISTANT suggested to SUPERVIS[employer] to provide chair alarm due to dizziness during mobility might be fall risk. CUSTOMER SUPPORT ASSISTANT recommending HHPT 03/04 vs Home with assist . Unable to assess flight stairs today due to hypotensive. Will continue to assess progress. Gait Assessment Gait Gait Assistance Required: Standby Assistance Distance (Feet) 30 Able to Maintain Weight Bearing Status Yes During Gait Assistive Devices Assistive Device Gait Belt Orthotic/Prosthetic Devices or Brace: No Factors Limiting Gait Function Factors Limiting Gait Function Decreased Activity Tolerance, Decreased Strength Comments Gait Comments see mobility comments Stair Climbing Assessment Comments Stair Climbing Comments Unable to assess due to symptomatic hypotension. PT-Balance Assessment Sitting Balance and Reactions Static Sitting Balance Ability Normal Dynamic Sitting Balance Ability Normal Standing Balance and Reactions Static Standing Balance Ability Good Dynamic Standing Balance Ability Good Device Used Gait belt no AD Comments Other Balance Tests/Deviations/Treatment See gait description : M5 PT-IP Objective Assessments Start: 10/17/24 08:01 Freq: NEEDED Status: Active Protocol: Document 10/17/24 10:31 MB (Rec: 10/17/24 11:26 MB [id number]) Orientation Orientation/Cognition Level of Alertness Alert Language Function Ability Hard of Hearing Safety Awareness Decreased Safety Awareness Comments Pt is severely NUIQSUT and does not answer all questions because cannot hear PT when not reading PT's lips and she frequently looks away when talking, she also reports not having her glasses Gross Range of Motion Upper Extremity ROM Assessment Left Impaired Impairments Defer to OT, left hand changes Lower Extremity ROM Assessment Within Functional Limits Strength Lower Extremity Strength Assessment Within Functional Limits Comments Strength Comments Deferred MMT d/t pain and pt has normal range and strength with gait Coordination Assessment Assessment Coordination Comments Right hand only testing for finger to nose and normal, left hand not tested d/t IV and left wrist pain and injury . Oculomotor screen is also negative and pt denies dizziness M6 PT-IP Treatment Start: 10/17/24 08:01 Freq: NEEDED Status: Active Protocol: Document 10/18/24 08:01 SP (Rec: 10/18/24 08:38 SP [id number]) Physical Therapy Treatment Other Treatments Other Treatment Performed Ed in safety/care with gait and benefits of cane and pt does not want to try today, she is receptive to services M7 PT-IP Assessment and Plan Start: 10/17/24 08:01 Freq: NEEDED Status: Active Protocol: Document 10/18/24 08:01 JELANI (Rec: 10/18/24 08:38 SP [id number]) PT Summary Assessment and Plan Potential Rehabilitation Potential Good Status of Condition at Evaluation Evolving Summary Impairments Pain,ROM,Strength,Balance, Coordination,Bed Mobility, Transfers,Gait,Activity Tolerance Progress Towards Goals Progressing Toward Goals Assessment Summary Pt improved stability, declines AD. I bed mob, SBA during gait, symtomatic hypotension during standing activities in room. BP 74/37, 93/53, 87/58 taken seated in chair end tx. Recommend HHPT consult at d/c and then progress to OPPT after she returns to PCP and is able to drive for post-concussive balance and vestibular assessment and training. Spoke with OT, continue recommend use AD for safety. Goals Bed Mobility Goal Independent Transfer Goal Independent,Cane Gait Goal Independent,Cane Gait Distance 150 Other Goals Pt will gait train without AD or with cane. Pt will ascend and descend 9 steps with right rail and mod I. Pt will perform WNLs on a standardized balance test to decrease fall risk. Days to Meet Goals 3 Frequency of Treatment Frequency Of Treatment Once a Day Other frequency x1 Treatment Plan Physical Therapy Treatment Plan Bed Mobility Training,Transfer Training,Gait Training, Therapeutic Exercise,Balance Retraining,Discharge Planning, Hot or Cold Pack,Neuromuscular Re-ed,Coordination Retraining ,Manual Therapy Recommendations To Nursing Amount of Assist Needed Standby Assistance Discharge Recommendations PT Discharge Recommendations Home with Assistance,Home with 24/7 Assist Available,Home Health Transportation Needs at Discharge Private Vehicle
--- NOTE | 2024-10-18 09:17 | OT.IP.TRT ---
Current Diagnoses Essential (primary) hypertension (10/16/24) Dizziness and giddiness (10/16/24) Syncope and collapse (10/16/24) Concussion with loss of consciousness of 30 minutes or less, initial encounter (10/16/24) Fall on same level, unspecified, initial encounter (10/16/24) Occupational Therapy Treatment Note M2 OT-IP Current Condition Start: 10/17/24 10:13 Freq: Status: Active Protocol: Document 10/17/24 10:13 [facility] (Rec: 10/17/24 10:43 [facility] [id number]) Occupational Therapy Current Condition Current Condition Evaluation Date 10/17/24 Treatment Diagnosis GLF, Concussion Diagnosis Onset Date 10/16/24 M3 OT- IP Subjective and Pain Start: 10/17/24 10:13 Freq: Status: Active Protocol: Document 10/18/24 09:25 [facility] (Rec: 10/18/24 09:36 [facility] [id number]) OT- Subjective Occupational Therapy Visit Type Type Treatment Note Visit Start Time 08:35 Visit Stop Time 09:17 Occupational Therapy Visit Comments Patient Comments Pt agreed to get up to try the 4ww. Patient/Caregiver Goals TO go home. OT Pain Assessment Pain When Pain Assessed During Mobility Pain Present Pain Present Pain Reported Location Left Ribs Intensity 3 Scale Used Numeric (0 - 10) M4 OT- IP ADL's Start: 10/17/24 10:13 Freq: Status: Active Protocol: Document 10/17/24 10:13 [facility] (Rec: 10/17/24 10:43 [facility] [id number]) OT [id number] General Evaluation Self-Feeding Ability Independent OT ADL-Grooming Comments OT Grooming Comments Pt states to do after breakfast. OT ADL-Dressing Comments OT Dressing Comments NOt performed. OT ADL-Toileting Comments OT Toileting Comments Pt states did earlier. OT ADL-Bathing Comments OT Bathing Comments Pt will benefit from using the built in seat at home. M5 OT- IP IADL's Start: 10/17/24 10:13 Freq: Status: Active Protocol: Document 10/17/24 10:13 [facility] (Rec: 10/17/24 10:43 [facility] [id number]) OT-Instrumental Activities of Daily Living Home Safety Awareness Awareness of Need for Assistance at Home Decreased Awareness Home Safety Comments Pt insists that she will be fine to take care of herself initially. At the end of the session, pt admits that she is unsteady on her feet and not thinking as well as she usually does. Medication Management Medication Management Comments Best to have supervision or to double check that she is taking the med accurately. Money Management Money Management Comments Best to have assist as needing increased time to do math calculations at this time. Meal Preparation Meal Preparation Comments Pt would benefit from assist. Promotion Manager Promotion Manager Comments Pt states has a promotions executive that come every two weeks. Driving Driving Concerns Identified Regarding Safety M6 OT- IP Functional Cognition Start: 10/17/24 10:13 Freq: Status: Active Protocol: Document 10/18/24 09:25 [facility] (Rec: 10/18/24 09:36 [facility] [id number]) Cognitive Factors Limiting Selfcare Function Cognitive Ability Level of Alertness Alert Patient Orientation Name,Age,Birthday,Month,Date, Year,Day of Week,Place, Situation Attention Span Ability Capable of Focused Attention, Capable of Sustained Attention Ability to Follow Commands Able to Follow One Step Commands Cognitive Comments Cognitive Assessment Comments Pt much more alert and has her hearing aids in. Pt states [place] is aware that she is in the hospital but does not want to have them come to assist her. Pt states her house keeper and to ask her friends to assist. Pt open to using the 4ww for mobility needs. Pt agreed not to do heavy lifting at this time. ALso to ice and elevate her left wrist. M7 OT- IP Mobility and Balance Start: 10/17/24 10:13 Freq: Status: Active Protocol: Document 10/18/24 09:25 [facility] (Rec: 10/18/24 09:36 [facility] [id number]) OT- Bed Mobility Assessment Sit to Supine Sit to Supine Assist Independent OT-Transfer Assessment Sit to and From Stand Sit to and from Stand Independent Transfers Transfer Ability Standby Assistance Comments Mobility Comments BP sitting 104/60, standing 54 /33 and complaining on being weak, supine 122/56, sitting 121/57. Nurse came in to take the BP manually BP sitting 108 /64 and standing 72/48. Nursing states best to have pt back in bed. OT- Balance Assessment Sitting Balance and Reactions Static Sitting Balance Ability Normal Dynamic Sitting Balance Ability Normal Standing Balance and Reactions Static Standing Balance Ability Normal Dynamic Standing Balance Ability Good M8 OT- IP Objective Assessments Start: 02/06/25 10:13 Freq: Status: Active Protocol: Document 10/17/24 10:13 [facility] (Rec: 10/17/24 10:43 [facility] [id number]) OT Gross Range of Motion Upper Extremity Range of Motion Assessment Right Impaired OT Strength Upper Extremity Strength Assessment Right Impaired Comments Strength Comments Pt has more pain in left wrist extension. Left wrist very swollen and elevated pt's hand with ice. 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 Suggested to pt if pain continues to get her hand evaluated again. OT- Coordination Assessment Upper Extremity Finger to Nose Test Left UE Impaired Comments Coordination Comments Slightly off with left finger. M9 OT- IP Assessment and Plan Start: 10/17/24 10:13 Freq: Status: Active Protocol: Document 10/18/24 09:25 [facility] (Rec: 10/18/24 09:36 [facility] [id number]) OT Summary Assessment and Plan Potential Rehabilitation Potential Excellent Analytic Complexity at Evaluation Moderate Summary OT Impairments Pain,Range of Motion,Strength, Balance,Functional Cognition, Functional Mobility,Grooming, Dressing,Toileting,Bathing, Toilet Transfers,Shower Transfers,Activity Tolerance Progress Towards Goals Progressing Toward Goals,Slow Progress due to Medical Issues Assessment Summary Pt MOD complexity and doing better physically but having hypotension when standing. Left wrist still swollen, but better then yesterday. Limited for end ROM into extension otherwise mostly WFL . Pt complains on pain throughout the left wrist but not increased for the snuff box, scaphoid shift test also performed appears negative. Suggested to pt if pain still persists to get her wrist x- rays again and see doctor/ orthro and eventually a hand therapist if her pain, symptoms, and function gets worse. Pt today able to use her left hand for eating and use of cell phone without issues. Pt to go home with assist when medically stable. Goals Dressing Goal Independent Toileting Goal Independent Bathing Goal Independent Toilet Transfer Goal Independent Shower Transfer Goal Independent Days to Meet Goals 3 Frequency of Treatment Frequency Of Treatment Once a Day Treatment Plan OT Treatment Plan ADL Training,Functional Mobility,Patient/Family Education,Discharge Planning Discharge Recommendations OT Discharge Recommendations Home with Assistance,Home Health Transportation Needs at Discharge Private Vehicle
[2024-10-18] MEDS: LIDOCAINE 5% PATCH 1 EACH TOP (09:25)
[2024-10-18] MEDS: ENOXAPARIN 40 MG/0.4 ML SYRINGE SUBCUT (09:25)
[2024-10-18] MEDS: IBUPROFEN 400 MG TABLET PO ×2 (09:26→21:13)
[2024-10-18] MEDS: HYDROXYCHLOROQUINE 200 MG TABLET PO ×2 (09:27→21:13)
--- NOTE | 2024-10-18 12:05 | PM.PN.1 ---
Subjective Subjective Interval history: S: She was orthostatic today and became quite dizzy with PT. She was has more left-sided chest pain today consistent with rib contusions. Her left shoulder remains very sore as is her left wrist. She was 3 stories of stairs at her home. Exam Vital Signs (past 8 hours): - 10/18/24 04:54 10/18/24 08:00 Temperature 96.9 F L 96.9 F L Pulse Rate 64 88 Respiratory Rate 16 14 Blood Pressure 137/70 116/70 Pulse Oximetry 95 96 Oxygen Flow Rate 0 0 Oxygen Delivery Method Room Air Oxygen Flow Rate 0 Narrative Exam Narrative: NAD, alert and oriented. Fluent speech. Multiple facial hematomas. Lungs are clear, normal rate and effort. Heart is regular, no murmur gallop or rub. Abdomen is soft, non distended. Extremities are free of edema. Left shoulders tender to palpation as is her left chest. Her left wrist is splinted. Objective Labs 10/17/24 06:36 10/17/24 06:36 [facility] Medical History Hypertension not at goal Caregiver stress Alopecia Hyperlipidemia Hypothyroidism Benign essential HTN Heart murmur Social History household members: spouse Smoking Status: Never smoker Assessment & Plan Assessment & Plan narrative: 1. Ground level fall secondary to slipping on drive way, present on admission and active. 2. Left chest contusion, present on admission and active. 3. Left shoulder contusion, present on admission and active. 4. Left wrist contusion, present on admission and active. 5. Orthostatic hypotension, new and active. 6. Hypertension, present on admission and stable. 7. Facial bruising secondary to fall, present on admission and active. Plan: She needs another night of care given her orthostasis, instability, and pain issues. We will hold blood pressure medications. Fluid bolus and monitor orthostatic hypotension. PT, OT, advance activity as tolerated. SHAMIKA: 10/19. Time-Based Coding :: [TOTAL MINUTES] spent with patient and on the chart (including review of chart, obtaining history, exam, reviewing outside data, placing orders, documenting exam and treatment plan, and counseling patient) on [DATE].
--- NOTE | 2024-10-18 14:32 | CM.DPNOTE ---
DCP Continued: Reviewed EMR and team rounds for pt?s medical status. Per hospitalist, pt still not feeling stable to discharge today; will get fluids and reassess discharge the following day. DCP spoke with [facility] and it is confirmed that pt's insurance has been authorized for home health care. DCP sent signed MD order for PT/OT for soonest start of care date; [facility] to add-on nursing after PT start of care. Plan: Anticipating home when medically cleared with [facility] to follow. CM Team will continue to follow for coordination of discharge plans. OZZIE Palomino
[2024-10-19 03:00] VITALS: BP 117/61; PULSE 60; RESP 18; TEMP 36.6; O2SAT 94
[2024-10-19] MEDS: THYROID, PORK 30 MG TABLET 120 MG PO (05:25)
[2024-10-19 07:00] VITALS: BP 149/68; PULSE 66; RESP 15; TEMP 35.9; O2SAT 97
[2024-10-19] MEDS: HYDROXYCHLOROQUINE 200 MG TABLET PO (08:05)
[2024-10-19] MEDS: ENOXAPARIN 40 MG/0.4 ML SYRINGE SUBCUT (08:05)
[2024-10-19] MEDS: LIDOCAINE 5% PATCH 1 EACH TOP (08:05)
--- NOTE | 2024-10-19 08:52 | P.DS_ITS ---
History of Present Illness History of Present Illness Chief complaint: GLF, LOC Narrative: From H&P: (1) Acute exacerbation of chronic obstructive pulmonary disease: Status: Acute (2) Pneumonia: Qualifiers: Laterality: right Lung location: upper lobe of lung Pneumonia type: d ue to unspecified organism Qualified Code(s): J18.9 - Pneumonia, unspecified organism Status: Acute (3) Acute hypoxemic respiratory failure: Status: Acute Assessment & Plan narrative: # Acute RUL community-acquired pneumonia with acute COPD exacerbation with acute on chronic (2-4L) hypoxic respiratory failure, without sepsis, POA - admit to inpatient, med-surg, telemetry - keep SaO2 >88% - Rocephin/doxycycline - s/p Solu-medrol in ED - nebulizer therapy - incentive spirometry, flutter valve - CXR tomorrow if no improvement - COVID/Flu/RSV negative - fall precautions # Chronic anemia - stable - follow CBC # PUD - PPI # Hyperlipidemia - outpatient follow up # chronic Low back pain - continue prn Percocet # Restless legs - continue prn Valium DVT prophylaxis: LMWH Code: Full Diet: Regular Discharge Providers Provider Date of admission: 10/18/24 14:23 Discharge Date: 10/19/24 Primary care physician: Chris Sandoval DO Consults: 10/16/24 23:19 Consult to Occupational Therapy Evaluate & Treat Comment: Physician Instructions: Evaluate and treat Consult to Physical Therapy Evaluate & Treat Comment: Physician Instructions: Evaluate and Treat Discharge provider: Lucas Gonzalez MD Summary Hospital Course Discharge Diagnosis: 1. Ground level fall secondary to slipping on drive way, present on admission and active. 2. Left chest contusion, present on admission and active. 3. Left shoulder contusion, present on admission and active. 4. Left wrist contusion, present on admission and active. 5. Orthostatic hypotension, new and active. 6. Hypertension, present on admission and stable. 7. Facial bruising secondary to fall, present on admission and active. Hospital Course: She was admitted with multiple injuries after a slip and fall in her driveway. She would evidence of a concussion but had resolution of mental status within a very short time. She had left shoulder pain with limited range of motion which improved dramatically as well as left wrist swelling. This also improved. She would a left periorbital hematoma, left cheek facial tear, and a small laceration above the left eye. She also had ecchymosis over the left cheek and neck. On the day of discharge she was ambulating well and felt that she was ready to return home. She was orthostatic and February and this improved with IV fluids. Status at Discharge Cognitive/behavioral status at discharge: at baseline, oriented Functional status at discharge: independent ambulation Overall status at discharge: patient is back to baseline Time Spent with Patient Time spent: Greater than 30 minutes Exam Vital Signs (past 8 hours): - 10/19/24 03:00 Temperature 97.8 F Pulse Rate 60 Respiratory Rate 18 Blood Pressure 117/61 Pulse Oximetry 94 Oxygen Flow Rate 0 Oxygen Delivery Method Room Air Oxygen Flow Rate 0 Narrative Exam Narrative: NAD, alert and oriented. Fluent speech. Facial bruising, left cheeck skin tear and small laceration above left eye. Lungs are clear, normal rate and effort. Heart is regular, no murmur gallop or rub. Abdomen is soft, non distended. Extremities are free of edema. Left shoulder with normal range of motion actively. Left wrist is minimally swollen and not bruised with normal range of motion and minimal tenderness to focal palpation. Objective ECG Impression: Intervals [place] Rate: 84 P: 67 TX: 174 QRS: 27 QRSD: 76 T: 56 QT: 382 QTc: 451 Interpretive Statements Normal sinus rhythm Imaging Multiple studies:: Radiologist's impression: Wrist x-rays, hand x-rays, face and head CT were all negative for acute fracture. Cervical spine CT was also unremarkable. Echo: 1. The left ventricular contractility is normal. Estimated ejection fraction is greater than 60% with no segmental wall motion abnormalities. No LVH. No diastolic dysfunction. 2. The right ventricular contractility is normal. 3. All cardiac chambers are of normal size. 4. Trace to mild aortic insufficiency. 5. Trace to mild tricuspid regurgitation with estimated pulmonary systolic artery pressures of 33 mmHg. 6. No obvious intracardiac shunts. 7. No obvious intracardiac masses or thrombi. 8. No hemodynamically significant pericardial effusion. 9. Low right-sided filling pressures. Conclusion: Normal biventricular function with mild valvular insufficiencies. Carotid duplex ultrasound: 1. In the right carotid artery, there is 50-69 percent stenosis based on peak systolic velocity criteria. 2. In the left carotid artery, there is less than 50 percent stenosis based on peak systolic velocity criteria. 3. Antegrade vertebral arteries. Labs 10/17/24 06:36 10/17/24 06:36 [facility] Medical History Hypertension not at goal Caregiver stress Alopecia Hyperlipidemia Hypothyroidism Benign essential HTN Heart murmur Social History household members: spouse Smoking Status: Never smoker Discharge Assessment & Plan Assessment and Plan Assessment: 1. Ground level fall secondary to slipping on drive way, present on admission and active. 2. Left chest contusion, present on admission and active. 3. Left shoulder contusion, present on admission and active. 4. Left wrist contusion, present on admission and active. 5. Orthostatic hypotension, new and active. 6. Hypertension, present on admission and stable. 7. Facial bruising secondary to fall, present on admission and active. Plan of Treatment: Stable for discharge home. Steri-Strips applied to laceration above left eye. Basic wound care to face. She we will use a wrist splint as needed for comfort on the left wrist and follow up with her PCP as needed. Discharge Plan Discharge Plan Patient Disposition: Home Provider Discharge Comment: Stable for discharge home. Discharge orders & Medications Prescriptions: Continued valsartan 80 mg tablet 80 mg PO DAILY hydroxychloroquine 200 mg tablet 200 mg PO BID clobetasol 0.05 % solution 1 applic topical BID minoxidil 5 % solution 1 ml topical BID Patient Comments: hair loss continues, referred to derm specializing in post menopausal female hair loss, appointment apr [address] [place] in [facility] thyroid (pork) [[place] Thyroid] 120 mg tablet 120 mg PO DAILY Qty: 90 3RF Follow up/Referrals: Chris Sandoval DO [Primary Care Provider] - Discharge Health Status Multidrug resistant organism: No MDRO Diet/Activity/Treatments Diet: Regular Visit Report/Discharge Packet Instructions: DI for Wrist Sprain, DI for Shoulder Sprain Stand Alone Forms: Patient Portal/API Discharge Data Primary Care Provider: Chris Sandoval
--- NOTE | 2024-10-19 11:10 | PT-IP ANOTE ---
Attempted to see pt for follow up PT treatment but pt had already discharged home with home health services (per PT recommendation).
--- NOTE | 2024-10-19 11:45 | CM.DPC ---
DCP Discharge HOme with HH Per MD, pt is medically stable to d/c home today with HH and no identified barriers to discharge. Per RN, discharge instructions provided and no concerns noted and took pt out to POV to home. SW updated [facility] on pt discharge home today, F2F and HH orders previously sent yesterday, and SW secure emailed discharge summary to review. JASON Mcfarlane
== END 2024-10-19 10:13 | disposition home health service (06) | DRG 312 ==
LOC: ED 19:25 → AC 19:55
PROVIDERS: Admitting Provider Hospitalist; Emergency Provider Emergency Medicine; PCP Family Medicine; Referring Provider Emergency Medicine; Visit Provider Hospitalist
DX: I95.1 Orthostatic hypotension (principal); S06.0X1A Concussion with loss of consciousness of 30 minutes or less, initial encounter; E86.0 Dehydration; I10 Essential (primary) hypertension; S20.212A Contusion of left front wall of thorax, initial encounter; S40.012A Contusion of left shoulder, initial encounter; S60.212A Contusion of left wrist, initial encounter; S01.112A Laceration without foreign body of left eyelid and periocular area, initial encounter; S10.93XA Contusion of unspecified part of neck, initial encounter; L65.9 Nonscarring hair loss, unspecified; W00.0XXA Fall on same level due to ice and snow, initial encounter; Z79.69 Long term (current) use of other immunomodulators and immunosuppressants; Z23 Encounter for immunization
CPT/HCPCS: 36415; 70450; 70486; 71045; 72125; 73110; 73130; 80053; 80305; 80320; 81001; 82140; 82962; 83690; 84443; 85025; 85610; 90471; 93005; 93306; 93880; 96361; 96374; 97129; 97161; 97166; 97530; 99284; 99285; G0378; 90715; J1650; J2405

== ENCOUNTER → 2025-03-12 07:44 | Outpatient (CLI) | payer BC, SELFPAY ==
[2024-10-16 20:59] VITALS: BMI 26.2
[2025-03-12 08:36] LABS: Alanine Aminotransferase 22 IU/L (<35); Albumin 4.7 g/dL (3.5-5.0); Albumin Globulin Ratio 1.6 (1.0-2.8); Alkaline Phosphatase 54 U/L (38-126); Blood Urea Nitrogen 28 mg/dL (7-17); Calcium 10.2 mg/dL (8.4-10.2); Carbon Dioxide 29 mmol/L (22-32); Chloride 103 mmol/L (98-107); Cholesterol 223 mg/dL (140-199); Estimated Glomerular Filt Rate > 60 mL/min (>60); Globulin 3.0 g/dL (1.7-4.1); Glucose 104 mg/dL (70-99); HDL Cholesterol 75 mg/dL (40-60); HEMOLYSIS < 15 (0-50); Potassium 4.9 mmol/L (3.4-5.1); Sodium 141 mmol/L (137-145); Total Protein 7.7 g/dL (6.3-8.2); Triglycerides 94 mg/dL (35-150)
[2025-03-12 09:07] LABS: TSH w/ Reflex to FT4 9.22 uIU/mL (0.47-4.68)
[2025-03-12 10:01] LABS: Free T4, Direct Thyroxine 0.92 ng/dL (0.78-2.19)
== END ==
PROVIDERS: PCP Family Medicine; Referring Provider Family Medicine; Visit Provider Family Medicine
DX: E78.5 Hyperlipidemia, unspecified (principal); E03.9 Hypothyroidism, unspecified; I10 Essential (primary) hypertension; R01.1 Cardiac murmur, unspecified
CPT/HCPCS: 36415; 80053; 80061; 84439; 84443

== ENCOUNTER → 2025-06-04 09:26 | Outpatient (CLI) | payer BC, SELFPAY ==
[2024-10-16 20:59] VITALS: BMI 26.2
[2025-06-04 10:34] LABS: Free T3, Triiodothyronine Free 4.26 pg/mL (2.77-5.27); Free T4, Direct Thyroxine 1.20 ng/dL (0.78-2.19)
[2025-06-04 10:48] LABS: Thyroid Stimulating Hormone 0.284 uIU/mL (0.47-4.68)
== END ==
PROVIDERS: PCP Family Medicine; Referring Provider Family Medicine; Visit Provider Family Medicine
DX: E03.9 Hypothyroidism, unspecified (principal); E78.5 Hyperlipidemia, unspecified
CPT/HCPCS: 36415; 84439; 84443; 84481